=== PATIENT | male | born 1940 | race Caucasian/White ===

== ENCOUNTER → 2016-08-18 | Outpatient (CLI) | payer MEDICARE, OTHER | END | disposition home or self-care (01) | LOC: GMAL 19:17 | PROVIDERS: ATTEND Family Medicine | DX: R31.9 Hematuria, unspecified (principal); Z12.5 Encounter for screening for malignant neoplasm of prostate | CPT/HCPCS: 87086; G0103 ==

== ENCOUNTER → 2016-08-23 | Outpatient (CLI) | payer MEDICARE, OTHER ==
--- NOTE | 2016-08-23 15:54 | CT ---
EXAM DESCRIPTION: Abdomen/Pelvis w/wo Contrast CLINICAL HISTORY: HEMATURIA COMPARISON: None. TECHNIQUE: CT of the abdomen and pelvis was performed prior to and after the administration of contrast.. Multiple axial images and multiplanar reconstructions were generated. FINDINGS: Lung bases are clear. Severe multilevel degenerative change of the spine. Prior granulomatous disease. The spleen, bilateral adrenal glands, liver, gallbladder and pancreas are unremarkable. Bilateral kidneys enhance symmetrically. Two left renal cyst noted. No evidence of renal stone. Bilateral ureters are unremarkable. Urinary bladder demonstrates minimal distention which likely results in the prominence of the wall. The prostate is enlarged measuring 5 cm in the transverse dimension. No lymphadenopathy noted. Negative for aneurysm of abdominal aorta. Small bowel and colon are without acute findings. Diverticulosis is noted. Facet IMPRESSION: 1. Two left subcentimeter renal cyst noted. No evidence of renal mass or stone 2. Urinary bladder wall is thickened. Could be secondary to inflammatory change or nondistention. 3. The prostate is enlarged measuring 5 cm in the transverse dimension. 4. Diverticulosis of the colon noted. Electronically signed by: Ezra Zepeda MD 08/23/2016 3:54 PM ORDER ENTRY TECHNICIAN
== END | disposition home or self-care (01) ==
LOC: CT 09:20
PROVIDERS: ATTEND Family Medicine
DX: R31.9 Hematuria, unspecified (principal)

== ENCOUNTER → 2016-10-12 | Outpatient (CLI) | payer MEDICARE, OTHER | LOC: GMAL 16:45 | PROVIDERS: ATTEND Family Medicine | DX: R50.9 Fever, unspecified (principal) ==

== ENCOUNTER → 2016-11-17 | Outpatient (CLI) | payer MEDICARE, OTHER | END | disposition home or self-care (01) | LOC: GMAL 12:23 | PROVIDERS: ATTEND Family Medicine | DX: D53.9 Nutritional anemia, unspecified (principal) ==

== ENCOUNTER → 2016-12-06 | Outpatient (CLI) | payer MEDICARE, OTHER ==
--- NOTE | 2016-12-06 09:11 | RAD ---
EXAM DESCRIPTION: Wrist,Right 3 Views CLINICAL HISTORY: 76 years, Male, CARPAL TUNNEL SYNDROME COMPARISON: None. FINDINGS: No fracture or dislocation. Mild narrowing of the radiocarpal joint space. [place] fibrocartilage calcification compatible pseudogout. Advanced arthritic change first carpometacarpal joint with sclerosis and spurring and lateral subluxation. Moderate degenerative change interphalangeal joint of the thumb. IMPRESSION: No fracture or dislocation. Degenerative change and findings of pseudogout. Arthritic changes in the first digit right hand Electronically signed by: Marcelo Joy MD 12/06/2016 9:10 AM CDT
--- NOTE | 2016-12-06 09:12 | RAD ---
EXAM DESCRIPTION: Wrist,Left 3 Views CLINICAL HISTORY: 76 years, Male, CARPAL TUNNEL SYNDROME COMPARISON: None. FINDINGS: No fracture or dislocation. Moderate narrowing radiocarpal joint space. Central fibrocartilage calcification compatible pseudogout. Arthritic changes first carpometacarpal joint and is probably joint of the thumb. This is probably slightly less advanced than the right side. IMPRESSION: No fracture or dislocation. Arthritic changes. Findings of pseudogout. Electronically signed by: Marcelo Joy MD 12/06/2016 9:11 AM CDT
== END | disposition home or self-care (01) ==
LOC: RAD 08:24
PROVIDERS: ATTEND Orthopaedic Surgery
DX: G56.01 Carpal tunnel syndrome, right upper limb (principal); G56.02 Carpal tunnel syndrome, left upper limb

== ENCOUNTER → 2017-01-13 | Outpatient (CLI) | payer MEDICARE, OTHER ==
--- NOTE | 2017-01-16 17:30 | RAD ---
EXAM DESCRIPTION: Knee,Left Complete CLINICAL HISTORY: 76 years, Male, PAIN IN LEFT KNEE COMPARISON: None TECHNIQUE: Three views of the left knee FINDINGS: Severe lateral compartment arthritic changes with marked joint space narrowing and prominent marginal osteophytes. Significant though lesser patellofemoral and medial compartment changes are present. Related small effusion. No fracture or bone lesion. IMPRESSION: 1. Severe lateral compartment arthritis of the left knee Electronically signed by: Leopoldo Whittaker MD 01/16/2017 5:28 PM CDT
--- NOTE | 2017-01-16 17:57 | RAD ---
EXAM DESCRIPTION: Pelvis CLINICAL HISTORY: 76 years Male, PAIN IN RIGHT AND LEFT HIPS COMPARISON: None. FINDINGS: AP pelvis shows mild joint space narrowing both hips with early marginal osteophytes. No hip fracture or bone lesion. SI joints unremarkable. Severe degenerative changes lower lumbar spine. IMPRESSION: Early arthritis both hips Severe lumbar spondylosis Electronically signed by: Leopoldo Whittaker MD 01/16/2017 5:56 PM CDT
--- NOTE | 2017-01-16 17:57 | RAD ---
EXAM DESCRIPTION: Knee,Right Complete CLINICAL HISTORY: 76 years, Male, PAIN IN RIGHT KNEE COMPARISON: None TECHNIQUE: Three views of the right knee FINDINGS: Severe medial lateral compartment arthritis with marked joint space narrowing and productive marginal osteophyte formations. Lesser but still significant patellofemoral changes present. Small related joint effusion. No fracture or bone lesion. IMPRESSION: 1. Severe medial and lateral compartment osteoarthritis Electronically signed by: Leopoldo Whittaker MD 01/16/2017 5:55 PM CDT
== END | disposition home or self-care (01) ==
LOC: RAD 07:53
PROVIDERS: ATTEND Orthopaedic Surgery
DX: M25.561 Pain in right knee (principal); M25.562 Pain in left knee; M25.551 Pain in right hip; M25.552 Pain in left hip

== ENCOUNTER 2017-01-19 06:01 | Day surgery (SDC) | payer MEDICARE, OTHER ==
[2017-01-19] MEDS ORDERED: LACTATED RINGERS 1,000 ML ONE (06:11)
[2017-01-19] MEDS ORDERED: SODIUM CHL 0.9% 100ML MINI-BAG 100 ML IVPB ONE (06:11)
[2017-01-19] MEDS ORDERED: ceFAZolin SODIUM 1 GM VIAL ONE ×2 (06:12→09:02)
[2017-01-19] MEDS ORDERED: BUPIVACAINE 0.25% INJ 30 ML VIAL INJ ONE (09:01)
[2017-01-19] MEDS ORDERED: LIDOCAINE 1% 50 ML VIAL INJ ONE (09:01)
[2017-01-19] MEDS ORDERED: VANCOMYCIN HCL INJ 1,000 MG VIAL IVPB ONE (09:02)
[2017-01-19] MEDS ORDERED: MIDAZOLAM INJ 5 MG/5 ML VIAL ONE (09:29)
[2017-01-19] MEDS ORDERED: fentaNYL CITRATE INJ 50 MCG/ML AMP ONE (09:29)
[2017-01-19] MEDS ORDERED: LIDOCAINE 1% 10 ML VIAL INJ ONE (10:00)
[2017-01-19] MEDS ORDERED: PROPOFOL 200 MG/20 ML VIAL IV ONE (10:00)
[2017-01-19] MEDS ORDERED: raNITIdine HCL INJ 25 MG/ML VIAL IV ONE (10:00)
--- NOTE | 2017-01-19 10:18 | OP ---
DATE OF PROCEDURE: 01/19/17 PREOPERATIVE DIAGNOSIS: 1. Left carpal tunnel syndrome. POSTOPERATIVE DIAGNOSIS: 1. Left carpal tunnel syndrome. PROCEDURE: 1. Left carpal tunnel release. SURGEON: Kelton Nielson MD. MEDICAL RECORD RETRIEVAL SPECIALIST: Gunnar Roy CST, SA-C. ANESTHESIA: Local with sedation. COMPLICATIONS: None. FINDINGS: Narrowing of the median nerve across the carpal tunnel with thickened transverse ligament and thenar atrophy. INDICATION: The patient has a history of carpal tunnel syndrome that has been refractory to conservative measures. He has ongoing symptoms on a daily basis and has requested carpal tunnel release. After discussing the risks, benefits and alternatives to that, the patient has given informed consent for carpal tunnel release. PROCEDURE: The patient was brought to the Operating Room and placed in the supine position. Sedation was administered and local anesthetic was injected into the operative area under sterile conditions. After the injection of anesthetic, the arm was sterilely prepped and draped. A longitudinal incision was made directly overlying the transverse carpal ligament and blunt dissection was carried down to the ligament. The transverse carpal ligament was sharply transected along its length and a [place] elevator was used to ensure complete release of the ligament. Once release had been confirmed, the wound was thoroughly irrigated and the wound was closed with Nylon suture. A sterile dressing was placed and the patient was taken to the Day Surgery Unit. POSTOPERATIVE INSTRUCTIONS: The patient has been encouraged to do range of motion of the digits and will followup with us in two days. [facility][id number]ENT[facility]enetta
[2017-01-19 11:05] VITALS: TEMP 97
[2017-01-19 11:06] VITALS: BP 138/60; O2SAT 99
== END 2017-01-19 10:50 | disposition home or self-care (01) ==
LOC: AMB 06:01
PROVIDERS: ATTEND Orthopaedic Surgery
DX: G56.02 Carpal tunnel syndrome, left upper limb (principal); I10 Essential (primary) hypertension; I25.10 Atherosclerotic heart disease of native coronary artery without angina pectoris; K21.9 Gastro-esophageal reflux disease without esophagitis; J44.9 Chronic obstructive pulmonary disease, unspecified; Z95.1 Presence of aortocoronary bypass graft; I25.2 Old myocardial infarction; Z88.8 Allergy status to other drugs, medicaments and biological substances; Z79.82 Long term (current) use of aspirin; Z79.899 Other long term (current) drug therapy
CPT/HCPCS: 01810; 64721; 87070; J0690; J2250; J2780; J3010; J3370; J3490; J7050; J7120

== ENCOUNTER → 2017-03-10 | Outpatient (CLI) | payer MEDICARE, OTHER | END | disposition home or self-care (01) | LOC: GMA 14:45 | PROVIDERS: ATTEND Physician Assistant | DX: N39.0 Urinary tract infection, site not specified (principal); R30.0 Dysuria; R31.9 Hematuria, unspecified ==

== ENCOUNTER → 2017-05-24 | Outpatient (CLI) | payer MEDICARE, OTHER | END | disposition home or self-care (01) | LOC: GMAL 10:43 | PROVIDERS: ATTEND Family Medicine | DX: E55.9 Vitamin D deficiency, unspecified (principal) ==

== ENCOUNTER → 2017-05-31 | Outpatient (CLI) | payer MEDICARE, OTHER | END | disposition home or self-care (01) | LOC: GMAL 14:35 | PROVIDERS: ATTEND Family Medicine | DX: N39.0 Urinary tract infection, site not specified (principal); Z85.46 Personal history of malignant neoplasm of prostate; R31.21 Asymptomatic microscopic hematuria ==

== ENCOUNTER → 2017-08-18 | Outpatient (CLI) | payer MEDICARE, OTHER ==
--- NOTE | 2017-08-18 09:23 | RAD ---
LEFT SHOULDER HISTORY:SHOULDER PAIN COMPARISON: None FINDINGS: Four views of shoulder demonstrate anatomic bony alignment. No acute fracture nor dislocation is identified. Acromiohumeral interval is maintained. Glenohumeral and acromioclavicular articulations are unremarkably aligned. No soft tissue abnormality around the shoulder joint. No pneumothorax in visualized portion of left upper lung. IMPRESSION: No acute bony injury identified in left shoulder Electronically signed by: Isaiha rCuz MD 08/18/2017 9:22 AM DIRECTOR OF PHYSIOTHERAPY SERVICES
--- NOTE | 2017-08-18 09:24 | RAD ---
LEFT HAND HISTORY:HAND PAIN COMPARISON:None FINDINGS: Three views of hand demonstrate anatomic bony alignment. No fracture, dislocation nor inflammatory bony erosion is identified. IP, DIP and CMC joints are diffusely narrowed, with sparing of MCP joints. No soft tissue abnormality detected along the hand. IMPRESSION: No bony injury in left hand. Osteoarthritis Electronically signed by: Isaiah Cruz MD 08/18/2017 9:23 AM [facility]
== END ==
LOC: RAD 07:44
PROVIDERS: ATTEND Orthopaedic Surgery
DX: M79.642 Pain in left hand (principal); M19.042 Primary osteoarthritis, left hand; M25.512 Pain in left shoulder

== ENCOUNTER → 2017-10-19 | Outpatient (CLI) | payer MEDICARE, OTHER | LOC: GMAL 16:51 | PROVIDERS: ATTEND Family Medicine | DX: Z01.818 Encounter for other preprocedural examination (principal); D51.3 Other dietary vitamin B12 deficiency anemia; R30.0 Dysuria ==

== ENCOUNTER → 2017-10-20 | Outpatient (CLI) | payer MEDICARE, OTHER ==
--- NOTE | 2017-10-21 10:33 | MRI ---
EXAM DESCRIPTION: Lumbar Spine w/o Contrast MRI. CLINICAL HISTORY: DORSALGIA COMPARISON: Cervical MRI scan on the same visit. TECHNIQUE: Multiplanar, multiple standard sequences, non contrast MRI, lumbar spine. FINDINGS: L5-S1: Moderate disc space loss with large anterior spur formation along with disc bulge. Posterior disc osteophyte bulge abutting the thecal sac and the descending S1 nerve roots. Moderate to severe canal narrowing. Bilateral facet arthrosis and flavum hypertrophy. Bilateral disc osteophyte complex encroachment on the foramina which are stenotic. L4-5: Moderate to severe disc space loss with anterior bridging osteophytes more right than left, and disc bulge. Posterior bilateral facet arthrosis and flavum ligament hypertrophy. Moderate central canal stenosis. Diffuse endplate marrow edema. Posterior osteophyte disc encroachment on the subarticular recesses which are stenotic, and encroachment on the bilateral L5 nerves. Modic type III endplate reaction on the right and type II reaction on the left moderate narrowing right foramen and left foraminal stenosis. L3-4: Moderate to severe disc space loss more to the left of midline with Schmorl's nodes. Anterior and left lateral Modic type II endplate reactive changes. Minimal anterior disc bulge and spurs. No significant posterior bulge. Mild flavum ligament hypertrophy and facet arthrosis. Mild canal narrowing. Left foraminal stenosis and encroachment on the left L3 nerve. L2-3: Moderate to severe disc space loss more in the midline into the left of midline. Anterior disc bulging and endplate ridging. Mild canal narrowing with no significant disc bulge. Mild flavum ligament hypertrophy and left facet arthrosis. Left side Modic type II endplate reactive changes and moderate foraminal narrowing. L1-2: Disc desiccation with anterior disc bulge and large spurs. Schmorl's nodes superior L2 endplate. Trace retrolisthesis. Tiny posterior disc bulge. Minimal flavum ligament hypertrophy with mild canal narrowing. Mild bilateral foraminal narrowing with disc bulge also into the left foramen. T12-L1: Moderate to severe disc space loss. Minimal anterior bulging and endplate spurs to the right of midline. Schmorl's nodes inferior T12 endplate. Posterior disc osteophyte complex abutting the cord with conus medullaris terminating just below the disc space. Moderate canal narrowing. Minimal facet arthrosis and flavum ligament hypertrophy. Moderate bilateral foraminal narrowing. Minimal lower lumbar dextroscoliosis and thoracolumbar levoscoliosis. Paravertebral soft tissues show muscle atrophy.. Otherwise normal marrow signal in the remaining vertebral bodies and the posterior elements. Vertebral bodies are not compressed at any level. IMPRESSION: 1. Spondylosis at every level with anterior disc bulging and endplate ridging. Canal narrowing and foraminal narrowing or stenosis at almost every level. Minimal scoliosis. 2. Posterior disc osteophyte L5-S1 disc bulge abutting the descending S1 nerve roots in the canal. Also bilateral encroachment on the foramina. Correlate for L5 and S1 radiculopathy. 3. Large posterior disc osteophyte complex encroachment on the thecal sac. Bilateral subarticular recesses stenosis in the bilateral L5 nerves. Moderate central canal stenosis. Left foraminal stenosis. 4. Left side disc osteophyte complex at L3-4 resulting in left foraminal stenosis and encroachment on the left L3 nerve. 5. Large posterior disc osteophyte complex at T12-L1 abutting the cord. Conus terminates just below the disc space. Moderate to severe canal narrowing. Electronically signed by: Gunnar Perkins MD 10/21/2017 10:32 AM CDT
--- NOTE | 2017-10-21 10:48 | MRI ---
EXAM DESCRIPTION: Cervical Spine: MRI. CLINICAL HISTORY: LACK OF COORDINATION COMPARISON: MRI lumbar spine on the same visit. TECHNIQUE: Multiplanar MRI, multiple sequences, non-contrast High-field. FINDINGS: C4-5: Disc desiccation and moderate disc space loss. Anterior bulging with spurs. Grade 1 anterolisthesis. Posterior broad-based disc spur complex impressing on the cord. Posterior ligament hypertrophy. Bilateral facet arthrosis and uncinate spurs larger on the left than right. Cord compression with edema from the C3-4 disc space to the C4-5 disc space. 4 to 5 mm. Moderate canal stenosis. Bilateral moderate neural foraminal narrowing. C3-4: Disc desiccation and moderate disc space loss. Anterior bulging and endplate ridging. Posterior disc osteophyte bulge abutting the cord with moderate narrowing. Bilateral uncinate spurs and arthrosis of the right facet. Mild right neural foraminal stenosis and left neural foraminal moderate narrowing. C5-6: Minimal to moderate disc space loss and desiccation with anterior endplate spurs. Bilateral uncinate spurs. Mild bilateral neural foraminal narrowing. Mild bilateral facet arthrosis. Mild hypertrophy of the flavum ligaments and mild canal narrowing. C6-7: Disc desiccation and anterior bulging and endplate ridging. Moderate disc space loss. Posterior broad-based disc osteophyte bulge abutting the cord, more right than left. Borderline right paracentral canal stenosis. Moderate right neural foraminal stenosis and moderate left neural foraminal narrowing. C7-T1: Mild disc desiccation and minimal disc space loss. Grade 1 anterolisthesis. Bilateral facet arthrosis and flavum ligament hypertrophy. Mild canal narrowing. Bilateral moderate neural foraminal narrowing. T1-T2: Moderate disc space loss and desiccation with anterior bridging spurs. Grade 1 anterolisthesis. Schmorl's nodes in the inferior T1 endplate. Posterior broad-based disc bulge 4 mm abutting the cord. Mild canal narrowing. Moderate left neural foraminal narrowing with right neuroforamen patent. Normal signal in the C2-3 disc with no bulging. Disc spaces preserved. Canal and neural foramina are patent. Facets are unremarkable. No scoliosis. Spine is minimal lordosis with cervical thoracic kyphosis.. No cord compression or cord edema. Atlantoaxial joint is minimally hypertrophied.. Base of the cerebellar tonsils is above the level of the foramen magnum. Paravertebral soft tissues show muscle atrophy. Small nodule in the left lobe of thyroid gland.. Soft tissue edema posterior to the right C4-C5 facet joint. Vertebral bodies are not compressed at any level. Spondylosis indicated by marrow signal in the C4 and C5 vertebral bodies and the posterior elements. IMPRESSION: 1. Multiple levels of cervical spondylosis, disc degeneration and spur formation, facet arthrosis and ligament hypertrophy. 2. Cord compression at C4-5 with cord edema and moderate canal stenosis which is multifactorial. Cord diameter approximately 5 mm. This could be causing symptoms describing clinical history. Bilateral moderate neural foraminal narrowing. Correlate for bilateral C5 radiculopathy. 3. Moderate central canal narrowing at C3-4 with right neural foraminal stenosis. Correlate for right C4 radiculopathy. 4. Disc space narrowing and disc space loss at C5-6 with mild bilateral neural foraminal narrowing and mild canal narrowing. 5. Borderline right paracentral canal stenosis at C6-7 with large posterior disc osteophyte bulge more on the right. Moderate right neural foraminal stenosis. Correlate for right C7 radiculopathy. 6. Grade 1 anterolisthesis T1 and T2 with posterior broad-based disc bulge. Mild canal narrowing and moderate left neural foraminal narrowing. CRITICAL COMMUNICATION: The critical value was discussed directly by phone with Dr. Ronaldo Mustafa at approximately 1040 hours, on October 21, 2017. Electronically signed by: Gunnar Perkins MD 10/21/2017 10:46 AM CDT
== END ==
LOC: MRI 12:45
PROVIDERS: ATTEND Family Medicine
DX: M48.02 Spinal stenosis, cervical region (principal); M50.80 Other cervical disc disorders, unspecified cervical region; M43.14 Spondylolisthesis, thoracic region; M51.26 Other intervertebral disc displacement, lumbar region; R27.9 Unspecified lack of coordination

== ENCOUNTER → 2018-01-18 | Outpatient (CLI) | payer MEDICARE, OTHER | LOC: LAB.O 09:00 | PROVIDERS: ATTEND Family Medicine | DX: R79.1 Abnormal coagulation profile (principal); R94.5 Abnormal results of liver function studies; E56.1 Deficiency of vitamin K ==

== ENCOUNTER → 2018-04-19 | Outpatient (CLI) | payer MEDICARE, OTHER | LOC: GMAL 17:09 | PROVIDERS: ATTEND Family Medicine | DX: I50.9 Heart failure, unspecified (principal); R53.83 Other fatigue ==

== ENCOUNTER → 2018-07-17 | Outpatient (CLI) | payer MEDICARE, OTHER | LOC: GMAL 15:09 | PROVIDERS: ATTEND Family Medicine | DX: C61 Malignant neoplasm of prostate (principal) ==

== ENCOUNTER → 2018-08-11 | Outpatient (CLI) | payer MEDICARE, OTHER ==
--- NOTE | 2018-08-11 13:47 | RAD ---
EXAM DESCRIPTION: Pelvis CLINICAL HISTORY: 77 years Male, PAIN IN LEFT KNEE AND LEFT HIP COMPARISON: Radiograph of the pelvis dated 01/13/2017. TECHNIQUE: AP radiograph of the pelvis was performed. FINDINGS: The pelvic ring appears grossly intact on this single AP radiograph. No acute fracture or dislocation. Bilateral sacroiliac joints appear normal. Mild bilateral hip osteoarthritis The visualized lumbo-sacral spine demonstrates mild degenerative changes. IMPRESSION: Single AP radiograph of the pelvis demonstrates grossly intact pelvic ring. Mild bilateral hip osteoarthritis. Electronically signed by: Kelsie Brown MD 08/11/2018 1:44 PM [facility]
--- NOTE | 2018-08-11 13:47 | RAD ---
EXAM DESCRIPTION: Knee,Left 2 or More Views CLINICAL HISTORY: 77 years Male, PAIN IN LEFT KNEE AND LEFT HIP TECHNIQUE: 4 views of the left knee were performed. COMPARISON: None available. FINDINGS: The visualized bones appear well mineralized. No acute fracture or dislocation. Tricompartmental osteoarthritis, worse in the lateral tibiofemoral compartment. Small suprapatellar joint effusion. The soft tissues appear grossly unremarkable. IMPRESSION: Tricompartmental osteoarthritis, worse in the lateral tibiofemoral compartment. Small suprapatellar joint effusion. Electronically signed by: Kelsie Brown MD 08/11/2018 1:43 PM [facility]
== END ==
LOC: RAD 08:24
PROVIDERS: ATTEND Orthopaedic Surgery
DX: M17.12 Unilateral primary osteoarthritis, left knee (principal); M16.0 Bilateral primary osteoarthritis of hip; M25.561 Pain in right knee; M25.562 Pain in left knee; M25.551 Pain in right hip; M25.552 Pain in left hip

== ENCOUNTER → 2019-02-20 | Outpatient (CLI) | payer MEDICARE, OTHER | LOC: GMAL 14:37 | PROVIDERS: ATTEND Family Medicine | DX: D51.3 Other dietary vitamin B12 deficiency anemia (principal); E55.9 Vitamin D deficiency, unspecified; I10 Essential (primary) hypertension; Z79.899 Other long term (current) drug therapy ==

== ENCOUNTER → 2019-03-12 | Outpatient (CLI) | payer MEDICARE, OTHER ==
--- NOTE | 2019-03-12 18:25 | RAD ---
EXAM DESCRIPTION: Pelvis CLINICAL HISTORY: HIP PAIN COMPARISON: 11 August 2018 TECHNIQUE: AP pelvis FINDINGS: Degenerative changes are observed in the lower lumbar spine. Mild acetabular osteophyte formation is observed. No fracture is detected. No significant interval change is observed from the prior study. IMPRESSION: Degenerative changes are observed. There is been no interval change from the previous exam. Electronically signed by: Ronaldo Escobedo MD 03/12/2019 6:24 PM CDT
--- NOTE | 2019-03-12 18:27 | RAD ---
EXAM DESCRIPTION: Knee,Left Complete CLINICAL HISTORY: PAIN IN LEFT KNEE COMPARISON: 11 August 2018 TECHNIQUE: 4 views left FINDINGS: Marked loss of lateral joint space is observed. Lateral tibial osteophyte formation is noted. Chondrocalcinosis is observed in the medial joint compartment. Mild patellofemoral joint arthritis is observed. A small joint effusion is seen. IMPRESSION: Tricompartmental joint arthritis is observed most pronounced in the lateral joint compartment. No significant interval change is observed from the prior exam. Electronically signed by: Ronaldo Escobedo MD 03/12/2019 6:25 PM CDT
== END ==
LOC: RAD 09:55
PROVIDERS: ATTEND Orthopaedic Surgery
DX: M47.896 Other spondylosis, lumbar region (principal); M25.759 Osteophyte, unspecified hip; M17.12 Unilateral primary osteoarthritis, left knee

== ENCOUNTER 2019-04-20 12:15 | Emergency (ER) | payer MEDICARE, OTHER ==
[2019-04-20 12:32] VITALS: TEMP 96.9
[2019-04-20] MEDS ORDERED: ASPIRIN (CHEWABLE) 81 MG TAB PO ONE (12:49)
--- NOTE | 2019-04-20 12:56 | ED.PDOC ---
History of Present Illness - General Chief Complaint: Chest Pain/TN Stated Complaint: chest pain Time Seen by Provider: 04/20/19 12:28 - History of Present Illness Initial Comments: this is a 78-year-old gentleman who presents to the ED today with complaints of chest pain starting yesterday morning. He states that it is very mild in nature and has only been a 4/10 intensity at any time. He states that he was doing daily chores of feeding his horses whenever it began. He went inside and took nitroglycerin followed by a spray of his 's nitroglycerin and then 2 additional nitroglycerin with resolution of his pain. He states that it continued to present itself intermittently throughout the day but would last for less than 1 minute each time. He denies any shortness of breath nausea or diaphoresis with any of these episodes. He admits that taking a deep breath also initiates the pain. He states he felt it again this morning and wanted to come in and get it checked out. He has a history of a CABG in 1999 followed by 5 stents over the years, the last one being in 2014. He quit smoking approximately 10 years ago and prior to that was smoking about 2 packs per day tobacco. He states that he started in his teens. He is followed by Dr. Mustafa his PCP and by for cardiology. His surgery was performed in [facility]. Patient denies taking any aspirin today. He is not currently in any pain.he states he wanted to get checked out before hunting tomorrow morning. Allergies/Adverse Reactions: Allergies Hydromorphone [From Dilaudid] Allergy (Verified 01/13/17 11:05) Lorazepam Allergy (Verified 04/20/19 12:32) Meperidine [From Demerol HCl] Allergy (Verified 01/13/17 11:05) Home Medications: Ambulatory Orders Aspirin [Aspirin EC Low Dose] 81 mg PO DAILY 01/14/17 Lisinopril 5 mg PO DAILY 01/14/17 Omeprazole 20 mg PO DAILY 01/14/17 Simvastatin [Zocor] 40 mg PO DAILY 01/14/17 Multiple Vitamins W/ Minerals [Mens 50+ Multi Vitamin &] 1 tab PO DAILY 04/20/19 Nitroglycerin 0.4 mg Tab [Nitrostat] 1 ea SL PRN 04/20/19 Tamsulosin [Flomax] 0.4 mg PO QD 04/20/19 Review of Systems - Review of Systems Constitutional: States: no symptoms reported EENTM: States: no symptoms reported Respiratory: States: no symptoms reported. Denies: cough, orthopnea, short of breath, wheezing Cardiology: States: chest pain. Denies: edema, palpitations, syncope Gastrointestinal/Abdominal: States: no symptoms reported Genitourinary: States: no symptoms reported Musculoskeletal: States: no symptoms reported Skin: States: no symptoms reported Neurological: States: no symptoms reported. Denies: anxiety Endocrine: States: no symptoms reported Hematologic/Lymphatic: States: no symptoms reported All other Systems: Reviewed and Negative Past Medical History (General) - Patient Medical History Hx Stroke: No Hx Cardiac Disorders: Yes - Hypercholesterolemia Hx Congestive Heart Failure: No Hx Diabetes: No Hx Gastroesophageal Reflux: Yes Hx MRSA: No Surgical History: coronary bypass surgery - Vaccination History Hx Influenza Vaccination: Yes Hx Pneumococcal Vaccination: No - Social History Hx Tobacco Use: Yes Hx Physical Abuse: No Hx Emotional Abuse: No Family Medical History - Family History Father Family History: Unknown Living Status: Hx Cardiac Disease: Yes - parents Physical Exam - Physical Exam General Appearance: Alert, Comfortable, No apparent distress Eyes, Ears, Nose, Throat Exam: PERRL/EOMI Neck: non-tender, supple, normal inspection Respiratory: chest non-tender, no respiratory distress, no accessory muscle use, rhonchi - occasional and scatterred Cardiovascular/Chest: normal peripheral pulses, regular rate, rhythm, no edema, no gallop, no JVD, no murmur Peripheral Pulses: radial,right: 2+, radial,left: 2+ Gastrointestinal/Abdominal: normal bowel sounds, non tender, soft, no organomegaly, no pulsatile mass Extremity: normal range of motion Neurologic: sports media II-XII nml as tested, alert, normal mood/affect, oriented x 3 Skin Exam: normal color, warm/dry Lymphatic: no adenopathy Progress - Progress Progress: 04/20/19 12:59 MDM Pt with hx of cad and cabg with subsequent stenting. He will need cardiac enzymes x 2 and cxr. We will give asa. His bp and pulse are in good range presently. His initial ecg shows no signs of ischemia. 04/20/19 14:28 Pt is comfortable and has not experienced any chest pains. Troponin negative. 04/20/19 15:33 Pt is still feeling well. No signs of chest pain. Second troponin is pending. If negative will dc home with follow up. - Results/Orders Results/Orders: IMPRESSION: Heart size and pulmonary vascularity are within normal limits. Sternotomy wires with changes of prior cardiac surgery. Focal elevation of the right hemidiaphragm. There is no airspace consolidation, pleural effusion, or pneumothorax. No acute osseous abnormality. Electronically signed by: Mendoza Landeros MD 04/20/2019 1:17 PM CDT 04/20/19 12:48 IV:Start .ONCE 04/20/19 13:30 EKG STAT 04/20/19 14:45 ecg [EKG] STAT Laboratory Results - last 24 hr 04/20/19 04/20/19 04/20/19 13:03 13:03 13:03 WBC 5.6 RBC 4.36 L Hgb 14.0 Hct 41.8 L MCV 95.8 H MCH 32.2 H MCHC 33.6 RDW 13.4 Plt Count 221 MPV 8.1 Absolute Neuts (auto) 4.00 Absolute Lymphs (auto) 1.00 Absolute Monos (auto) 0.50 Absolute Eos (auto) 0.10 Absolute Basos (auto) 0.00 Neutrophils % 71.1 Lymphocytes % 17.2 L Monocytes % 8.7 Eosinophils % 2.6 Basophils % 0.4 Sodium 142 Potassium 4.2 Chloride 105 Carbon Dioxide 27 Anion Gap 14.2 BUN 13 Creatinine 0.92 BUN/Creatinine Ratio 14.1 Random Glucose 94 Serum Osmolality 283.0 Calcium 9.7 Total Bilirubin 0.6 AST 17 ALT 13 Alkaline Phosphatase 70 Troponin I < 0.02 Serum Total Protein 7.3 Albumin 4.1 Globulin 3.2 Albumin/Globulin Ratio 1.3 04/20/19 14:50 WBC RBC Hgb Hct MCV MCH MCHC RDW Plt Count MPV Absolute Neuts (auto) Absolute Lymphs (auto) Absolute Monos (auto) Absolute Eos (auto) Absolute Basos (auto) Neutrophils % Lymphocytes % Monocytes % Eosinophils % Basophils % Sodium Potassium Chloride Carbon Dioxide Anion Gap BUN Creatinine BUN/Creatinine Ratio Random Glucose Serum Osmolality Calcium Total Bilirubin AST ALT Alkaline Phosphatase Troponin I < 0.02 Serum Total Protein Albumin Globulin Albumin/Globulin Ratio - EKG/XRAY/CT EKG: Sinus, RBBB, no ST T wave changes Comments: No ischemic changes appreciated, rbbb, first degree av block, - Additional EKG/XRAY/Consults EKG #2: David, Sinus, RBBB Comments: long pr interval, first degree av block, unchanged, Departure - Departure Clinical Impression: Chest pain Qualifiers: Chest pain type: chest pain on breathing Qualified Code(s): R07.1 - Chest pain on breathing; R07.81 - Pleurodynia Time of Disposition: 15:59 Disposition: Discharge to Home or Self Care Condition: Good Departure Forms: ED Discharge - Pt. Copy, Patient Portal Self Enrollment Instructions: DI for Chest Pain Referrals: Ronaldo Mustafa III, MD [Primary Care Provider] - 1-2 Weeks Home Medications: Ambulatory Orders Aspirin [Aspirin EC Low Dose] 81 mg PO DAILY 01/14/17 Lisinopril 5 mg PO DAILY 01/14/17 Omeprazole 20 mg PO DAILY 01/14/17 Simvastatin [Zocor] 40 mg PO DAILY 01/14/17 Multiple Vitamins W/ Minerals [Mens 50+ Multi Vitamin &] 1 tab PO DAILY 04/20/19 Nitroglycerin 0.4 mg Tab [Nitrostat] 1 ea SL PRN 04/20/19 Tamsulosin [Flomax] 0.4 mg PO QD 04/20/19
--- NOTE | 2019-04-20 13:19 | RAD ---
EXAM DESCRIPTION: Chest,1 View CLINICAL HISTORY: 78 years Male, chest pain COMPARISON: 02/03/2018 IMPRESSION: Heart size and pulmonary vascularity are within normal limits. Sternotomy wires with changes of prior cardiac surgery. Focal elevation of the right hemidiaphragm. There is no airspace consolidation, pleural effusion, or pneumothorax. No acute osseous abnormality. Electronically signed by: Mendoza Landeros MD 04/20/2019 1:17 PM CDT
[2019-04-20 16:13] VITALS: BP 131/81; O2SAT 99
== END 2019-04-20 16:13 | disposition home or self-care (01) ==
LOC: ER 12:15
DX: R07.1 Chest pain on breathing (principal); R07.81 Pleurodynia; R00.1 Bradycardia, unspecified; I45.10 Unspecified right bundle-branch block; I44.0 Atrioventricular block, first degree; I25.10 Atherosclerotic heart disease of native coronary artery without angina pectoris; E78.00 Pure hypercholesterolemia, unspecified; K21.9 Gastro-esophageal reflux disease without esophagitis; Z95.1 Presence of aortocoronary bypass graft; Z87.891 Personal history of nicotine dependence; Z79.899 Other long term (current) drug therapy; Z79.82 Long term (current) use of aspirin; Z88.5 Allergy status to narcotic agent; Z88.8 Allergy status to other drugs, medicaments and biological substances

== ENCOUNTER → 2019-06-11 | Outpatient (CLI) | payer MEDICARE, OTHER | LOC: LAB.O 08:14 | PROVIDERS: ATTEND Orthopaedic Surgery | DX: Z01.818 Encounter for other preprocedural examination (principal) ==

== ENCOUNTER 2019-06-26 05:39 | Inpatient (IN) | payer MEDICARE, OTHER ==
[2019-06-26] MEDS ORDERED: SODIUM CHL 0.9% 100ML MINI-BAG 100 ML IVPB ONE (05:46)
[2019-06-26] MEDS ORDERED: TRANEXAMIC ACID 1,000 MG/10 ML VIAL ONE ×2 (05:46→05:48)
[2019-06-26] MEDS ORDERED: VANCOMYCIN HCL INJ 1,000 MG VIAL IVPB ONE ×3 (05:46→17:27)
[2019-06-26] MEDS ORDERED: SODIUM CHLORIDE 0.9% 250ML 250 ML ONE ×2 (05:47→17:27)
[2019-06-26] MEDS ORDERED: ceFAZolin SODIUM 1 GM VIAL ONE ×3 (05:47→19:37)
[2019-06-26] MEDS ORDERED: SODIUM CHLORIDE 0.9% 100ML 100 ML IVPB ONE ×3 (05:47→19:37)
[2019-06-26] MEDS ORDERED: LACTATED RINGERS 1,000 ML ONE (05:48)
[2019-06-26] MEDS ORDERED: ACETAMINOPHEN IV 1000MG 100 ML ONE (06:24)
[2019-06-26] MEDS ORDERED: MIDAZOLAM INJ 5 MG/5 ML VIAL ONE (06:25)
[2019-06-26] MEDS ORDERED: MORPHINE SULFATE *EPIDURAL* 0.5 MG/ML VIAL ONE (06:25)
[2019-06-26] MEDS ORDERED: TRANEXAMIC ACID 1,000 MG/10 ML VIAL IV ONE (06:37)
[2019-06-26] MEDS ORDERED: LACTATED RINGERS 1,000 ML IVS ONE ×2 (06:37→10:33)
[2019-06-26] MEDS ORDERED: LACTATED RINGERS 1,000 ML BAG IV ONE (06:37)
[2019-06-26] MEDS ORDERED: MAGNESIUM HYDROXIDE 30 ML UD PO PRN (07:49)
[2019-06-26] MEDS ORDERED: MORPHINE SULFATE INJ 10 MG/ML VIAL IM PRN (07:49)
[2019-06-26] MEDS ORDERED: ZOLPIDEM TARTRATE 5 MG TAB PO PRN (07:49)
[2019-06-26] MEDS ORDERED: NALOXONE HCL INJ 0.4 MG/ML VIAL IV PRN (07:49)
[2019-06-26] MEDS ORDERED: TEMAZEPAM 15 MG CAP PO PRN (07:49)
[2019-06-26] MEDS ORDERED: SODIUM CHLORIDE 0.9% (FLUSH) 10 ML SYG IV PRN (07:49)
[2019-06-26] MEDS ORDERED: traMADol HCL 50 MG TAB PO PRN (07:49)
[2019-06-26] MEDS ORDERED: DEX 5% W/NACL 0.45% 1000ML 1,000 ML IVS PRN (07:49)
[2019-06-26] MEDS ORDERED: BISACODYL SUPPOSITORY 10 MG PR PRN (07:49)
[2019-06-26] MEDS ORDERED: HYDROcodone 10MG/APAP 325MG 1 EA TAB PO PRN (07:49)
[2019-06-26] MEDS ORDERED: HYDROcodone 5MG/APAP 325MG 1 EA TAB PO PRN (07:49)
[2019-06-26] MEDS ORDERED: MORPHINE SULFATE INJ 10 MG/ML VIAL IV PRN (07:49)
[2019-06-26] MEDS ORDERED: PROMETHAZINE HCL INJ 25 MG in SODIUM CHLORIDE 0.9% 50ML 50 ML IVPB PRN (07:49)
[2019-06-26] MEDS ORDERED: ALUMINUM & MAGNESIUM HYDROXIDE 30 ML UD PO PRN (07:49)
[2019-06-26] MEDS ORDERED: PROMETHAZINE HCL INJ 12.5 MG in SODIUM CHLORIDE 0.9% 50ML 50 ML IVPB PRN (07:49)
[2019-06-26] MEDS ORDERED: BENZOCAINE-MENTH LOZ (CEPACOL) 1 EA LOZ MT PRN (07:49)
[2019-06-26] MEDS ORDERED: ONDANSETRON INJ 4 MG/2 ML VIAL IV PRN (07:49)
[2019-06-26] MEDS ORDERED: TRANEXAMIC ACID INJ 1,000 MG in SODIUM CHLORIDE 0.9% 100ML 100 ML IVPB ONE (07:49)
[2019-06-26] MEDS ORDERED: ACETAMINOPHEN 500 MG TAB PO PRN (07:49)
[2019-06-26] MEDS ORDERED: MORPHINE PCA 1 MG/ML 100 ML BAG IVPB SCH (08:00)
[2019-06-26] MEDS: BUPIVACAINE 0.5% 30 ML VIAL INJ ONE ×2 (08:36→09:26)
[2019-06-26] MEDS: ceFAZolin SODIUM 1 GM VIAL ONE ×3 (08:36→09:35)
[2019-06-26] MEDS: BUPIVACAINE LIPOSOME 13.3 MG/ML VIAL INJ ONE ×2 (08:37→09:26)
[2019-06-26] MEDS: VANCOMYCIN HCL INJ 1,000 MG VIAL IVPB ONE ×2 (08:37→09:35)
[2019-06-26] MEDS ORDERED: SODIUM CHLORIDE 0.9% 50 ML VIAL INJ ONE (10:00)
[2019-06-26] MEDS ORDERED: PROPOFOL 200 MG/20 ML VIAL IV ONE (10:00)
[2019-06-26] MEDS ORDERED: LIDOCAINE 1% 10 ML VIAL INJ ONE (10:00)
[2019-06-26] MEDS ORDERED: DEXAMETHASONE INJ 10 MG/ML VIAL IV ONE (10:00)
[2019-06-26] MEDS ORDERED: EPINEPHrine HCL AMP 1 MG/ML AMP IVPB ONE (10:00)
[2019-06-26] MEDS ORDERED: raNITIdine HCL INJ 25 MG/ML VIAL IV ONE (10:00)
[2019-06-26] MEDS ORDERED: MAGNESIUM SULFATE INJ 1 GM/2 ML VIAL IVPB ONE (10:00)
[2019-06-26] MEDS ORDERED: diphenhydrAMINE HCL 50 MG/ML VIAL IV ONE (10:00)
--- NOTE | 2019-06-26 10:07 | RAD ---
EXAM DESCRIPTION: Fluoroscopy Up to 1Hr CLINICAL HISTORY: 78 years Male, LEFT TKA COMPARISON: None. TECHNIQUE: Operative C-arm was used for left total knee replacement with a fluoroscopic time of 0.8 seconds and a dose of 0.05 mGy. A single image is submitted for evaluation. FINDINGS: Total knee prosthesis has been placed with femoral and tibial components evident on the single fluoroscopic image obtained alignment in the AP projection appears anatomic. IMPRESSION: Left total knee replacement with metallic femoral and tibial components placed. Electronically signed by: Sunday Cuello MD 06/26/2019 10:05 AM [facility]
[2019-06-26] MEDS ORDERED: MORPHINE PCA 1 MG/ML 100 ML BAG IVPB ONE (11:00)
[2019-06-26] MEDS: IV SET AND CAP CHANGE INJ INJ SCH (12:26)
[2019-06-26] MEDS: MAGNESIUM OXIDE 400 MG TAB PO SCH (12:27)
--- NOTE | 2019-06-26 14:41 | CONS ---
SUPERVISING PHYSICIAN: Sunday Mcmullen MD DATE OF CONSULTATION: 06/26/19 REASON FOR CONSULTATION: Medical management. HISTORY OF PRESENT ILLNESS: This is a 78-year-old male patient with a history of left knee osteoarthritis that failed conservative measures. The patient underwent elective left total knee arthroplasty today without any intraoperative complications. He returned to the Medical/Surgical Unit in no distress. At the time of examination, the patient is alert, but a little bit drowsy. He follows commands. No focal deficits noted. PAST MEDICAL HISTORY: 1. Coronary artery disease. 2. Hypertension. 3. Erectile dysfunction. 4. Prostate cancer. 5. Upper GI bleed secondary to a gastric ulcer. 6. Cervical spine stenosis. PAST SURGICAL HISTORY: 1. Bilateral inguinal hernia repair. 2. Coronary artery bypass graft times 5. 3. Left shoulder surgery. 4. Cervical corpectomy. 5. EGD in the past. 6. Stress tests, most recently in 2018. 7. Echocardiogram in 2018 shows ejection fraction 65% with a grade 1 diastolic dysfunction. MEDICATIONS: 1. Aspirin 81 mg p.o. daily. 2. Lisinopril 5 mg p.o. daily. 3. Multivitamin 1 tab p.o. daily. 4. Nitrostat sublingual p.r.n. for chest pain. 5. Omeprazole 20 mg p.o. daily. 6. Simvastatin 40 mg daily. 7. Flomax 0.4 mg p.o. daily. ALLERGIES: DEMEROL, DILAUDID, ATIVAN, MELOXICAM. FAMILY HISTORY: He does not know the medical history of his father. Mother at age 58 from a myocardial infarction. A brother has had a stroke. A sister had a stroke. 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 He is . He has one child. He has a distant history of smoking, but quit in 2006, but smoked 2 packs per day for multiple years. He drinks alcohol on occasion. No illicit drugs. REVIEW OF SYSTEMS: CONSTITUTIONAL: No fever or chills. No recent weight loss or weight gain. HEENT: No headaches, vision changes, ear pain, nasal congestion or throat pain. RESPIRATORY: No cough, hemoptysis or pleuritic chest pain. CARDIOVASCULAR: No chest pain, palpitations or peripheral edema. GASTROINTESTINAL: No nausea, vomiting, diarrhea, constipation or abdominal pain. GENITOURINARY: No dysuria, frequency or flank pain. HEMATOLOGIC: No easy bruising and no transfusion reaction. MUSCULOSKELETAL: Left knee pain chronically, but not at this time postoperatively. ENDOCRINE: No polydipsia, polyuria or polyphagia. No heat or cold intolerance. SKIN: No rashes, lesions or wounds. NEUROLOGIC: No syncope, paresthesias or seizures. PHYSICAL EXAMINATION: VITAL SIGNS: Blood pressure 129/76. Heart rate 68. Respiratory rate 14. Temperature 98.2. Oxygen saturation 100%. GENERAL: Mr. Stvoer is a 78-year-old male patient in no active distress. NEUROLOGIC: The patient is alert and oriented, a little bit drowsy from anesthesia, but follows commands. No focal deficits. LUNGS: Clear to auscultation bilaterally. CARDIOVASCULAR: Regular rate and rhythm. Normal S1, S2. ABDOMEN: Soft. Positive bowel sounds. GENITOURINARY: Deferred. EXTREMITIES: Lower extremities show an Evan wrap to the left knee and the knee is in an ice machine at this time. ASSESSMENT: 1. Left knee osteoarthritis status post left total knee arthroplasty, postoperative day 0. 2. History of hypertension. 3. Hospital course of coronary artery disease. 4. History of prostate cancer. PLAN: At this time, the patient will be admitted to the Medical/Surgical Unit for pain control as well as physical therapy postoperatively. He will be placed on anticoagulation approximately 12 hours after surgery ended. I will restart his home medications as well. We will monitor for any medical complications that may arise. [facility][id number] [facility]
[2019-06-26] MEDS: ceFAZolin SODIUM 2 GM in SODIUM CHLORIDE 0.9% 100ML 100 ML IVPB SCH ×2 (16:02→23:57)
--- NOTE | 2019-06-26 16:16 | RAD ---
EXAM DESCRIPTION: Knee,Left 1 or 2 Views: CR/DR/XR. CLINICAL HISTORY: TKA COMPARISON: Pre-operative left knee radiographs February 2019. TECHNIQUE/FINDINGS: 2 views AP and crosstable lateral post surgery.. IMPRESSION: Left total knee arthroplasty in customary position with near-anatomic alignment. No appearance of bone around the components is unremarkable. Typical postsurgical soft tissue changes. No abnormal radiodense objects in the soft tissues or joint spaces. Electronically signed by: Gunnar Perkins MD 06/26/2019 4:14 PM [facility]
[2019-06-26] MEDS: VANCOMYCIN HCL INJ 1,000 MG in SODIUM CHLORIDE 0.9% 250ML 250 ML IVPB SCH (17:32)
[2019-06-26] MEDS: CELECOXIB 100 MG CAP PO SCH (17:32)
[2019-06-26] MEDS ORDERED: ENOXAPARIN SODIUM 30 MG/0.3 ML SYG SUBCU ONE (19:37)
[2019-06-26] MEDS: DOCUSATE CALCIUM 240 MG CAP PO SCH (19:52)
[2019-06-26] MEDS: SIMVASTATIN 20 MG TAB PO SCH (19:52)
[2019-06-26] MEDS: ENOXAPARIN SODIUM 30 MG/0.3 ML SYG SUBCU SCH (23:51)
[2019-06-27] MEDS ORDERED: VANCOMYCIN HCL INJ 1,000 MG VIAL IVPB ONE (05:19)
[2019-06-27] MEDS ORDERED: SODIUM CHLORIDE 0.9% 250ML 250 ML ONE (05:19)
[2019-06-27] MEDS: OMEPRAZOLE CAP 20 MG CAP PO SCH (05:56)
[2019-06-27] MEDS: VANCOMYCIN HCL INJ 1,000 MG in SODIUM CHLORIDE 0.9% 250ML 250 ML IVPB SCH (05:56)
[2019-06-27] MEDS ORDERED: CYCLOBENZAPRINE HCL 5 MG TAB ONE (08:11)
[2019-06-27] MEDS: TAMSULOSIN 0.4 MG CAP PO SCH (08:22)
[2019-06-27] MEDS: CELECOXIB 100 MG CAP PO SCH ×2 (08:22→18:16)
[2019-06-27] MEDS: MAGNESIUM OXIDE 400 MG TAB PO SCH (08:22)
[2019-06-27] MEDS: LISINOPRIL 5 MG TAB PO SCH (08:23)
[2019-06-27] MEDS: MULTIPLE VITAMINS W/ MINERALS 1 EA TAB PO SCH (08:23)
[2019-06-27] MEDS ORDERED: SODIUM CHLORIDE 0.9% 100ML 100 ML IVPB ONE (08:23)
[2019-06-27] MEDS: CYCLOBENZAPRINE HCL 10 MG TAB PO PRN (08:23)
[2019-06-27] MEDS ORDERED: ceFAZolin SODIUM 1 GM VIAL ONE (08:24)
[2019-06-27] MEDS: ceFAZolin SODIUM 2 GM in SODIUM CHLORIDE 0.9% 100ML 100 ML IVPB SCH (08:25)
[2019-06-27] MEDS: ENOXAPARIN SODIUM 30 MG/0.3 ML SYG SUBCU SCH ×2 (11:52→22:31)
--- NOTE | 2019-06-27 13:06 | PN ---
SUPERVISING PHYSICIAN: Sunday Mcmullen MD DATE: 06/27/19 SUBJECTIVE: The patient is lying in bed. He is asleep. He awakens easily. He has no complaints and actually felt like his physical therapy went well. The nurse reported that the daughter was quite concerned about him being discharged home and has requested that [facility] see the patient for evaluation, which we have called them. The patient denies chest pain, nausea, vomiting, diarrhea, constipation. OBJECTIVE: VITAL SIGNS: Temperature 98.5. Heart rate 67. Blood pressure 114/78. Respiratory rate 16. O2 saturation 97% on room air. RESPIRATORY: Essentially clear to auscultation bilaterally. CARDIAC: Regular rate and rhythm. GASTROINTESTINAL: Abdomen is soft, nondistended, nontender. Bowel sounds are positive. EXTREMITIES: The dressing to his left knee is dry and intact. Bilateral pedal pulses are palpable at +2. NEUROLOGIC: Awake, alert and oriented times three. LABORATORY: Hemoglobin 12.5, hematocrit 37. All other labs and films have been reviewed via the EMR. ASSESSMENT: 1. Left knee osteoarthritis status post left total knee arthroplasty, postoperative day 1. 2. History of hypertension. 3. History of coronary artery disease. 4. History of prostate cancer. PLAN: We will continue present supportive care. He will continue with physical therapy for strengthening and conditioning. Orthopedic issues will be per Dr. Kelton Nielson, orthopedic surgeon. [facility] will come to evaluate the patient for possible discharge there. OTILIO Ledezma, has been in contact with the family. I will try to speak with the family at some point today or tomorrow. I have encouraged the patient to take his pain medications to assist with his physical therapy. I have encouraged good pulmonary hygiene. Otherwise, we will continue to monitor the patient closely and follow as needed. [facility][id number] [facility]
[2019-06-27] MEDS ORDERED: SODIUM CHLORIDE 0.9% 500ML 500 ML IVS ONE (15:43)
[2019-06-27] MEDS: SIMVASTATIN 20 MG TAB PO SCH (20:00)
[2019-06-27] MEDS: DOCUSATE CALCIUM 240 MG CAP PO SCH (20:00)
[2019-06-27] MEDS: ACETAMINOPHEN 325 MG TAB PO PRN (20:30)
[2019-06-28] MEDS: OMEPRAZOLE CAP 20 MG CAP PO SCH (06:05)
--- NOTE | 2019-06-28 08:03 | PN ---
DATE: 06/27/19 SUBJECTIVE: Mr. Stover is doing pretty well. He is up to a chair right now. The knee is bent at 90 degrees. OBJECTIVE: Afebrile. Vital signs stable. Dressing is clean, dry and intact. ASSESSMENT: Status post total knee arthroplasty. PLAN: The plan at this point is for him to continue weightbearing as tolerated. We will increase CPM as tolerated. #[id number] [facility]
--- NOTE | 2019-06-28 08:04 | PN ---
DATE: 06/28/19 SUBJECTIVE: Mr. Stover is improved with regards to his pain from yesterday. OBJECTIVE: Afebrile. Vital signs stable. Wound is clean. There are no signs or symptoms of infection. ASSESSMENT: Status post total knee arthroplasty. PLAN: The plan at this point is to continue with weightbearing as tolerated. [facility][id number] [facility]
--- NOTE | 2019-06-28 08:07 | OP ---
DATE OF PROCEDURE: 06/27/19 PREOPERATIVE DIAGNOSIS: 1. Osteoarthritis of the left knee. POSTOPERATIVE DIAGNOSIS: 1. Osteoarthritis of the left knee. PROCEDURE: 1. Total knee arthroplasty. SURGEON: Kelton Nielson MD. STEVEDORING SUPERINTENDENT: Gunnar Roy CST, SA-C. ANESTHESIA: General anesthesia. COMPLICATIONS: None. FINDINGS: Severe osteoarthritis of the knee. INDICATION: Mr. Stover has a long history of pain in the knee that has been refractory to conservative measures. Because of his ongoing pain, he has requested operative intervention. After discussing the risks, benefits and alternatives to that, the patient has given informed consent for total knee arthroplasty. PROCEDURE: The patient was brought to the Operating Room and placed in supine position. General anesthesia was induced and the patient's leg was sterilely prepped and draped. Following prepping and draping, the distal femur was exposed and using an intramedullary guide, the distal femoral cut was made. The appropriate sized cutting block was measured, pinned into place, and the anterior, posterior, and chamfer cuts were made. The ACL was transected and the tibia was subluxed. Both the medial and lateral menisci were removed. An intramedullary guide was used to make the proximal tibial cut. The appropriate sized base plate was placed and a trial polyethylene was placed. The trial femur was placed, the knee was reduced, and the knee was taken through a range of motion. The knee was stable in anterior, posterior, varus and valgus stress. The patella tracked anatomically without evidence of subluxation or dislocation. After trialing, the trial components were removed and the bony surfaces were thoroughly irrigated with saline. Following irrigation, the surfaces were dried and the final components were cemented into place. The excess cement was removed and the remaining cement was allowed to cure. The knee was again taken through a range of motion to confirm stability. The wound was then irrigated with saline and closure was performed using PDS to approximate the arthrotomy followed by closure of the subcutaneous tissues with a combination of running and interrupted Monocryl sutures. Sterile dressing was placed. The patient was awoken from anesthesia and taken to Recovery. COMPONENTS: Vandana Triathlon knee, size 7 femur, size 6 tibia, 9 mm insert. POSTOPERATIVE PLAN: The patient will be weight-bearing as tolerated on postoperative day 1. #[id number] [facility]
[2019-06-28] MEDS ORDERED: SODIUM CHLORIDE 0.9% 250ML 250 ML ONE (08:08)
[2019-06-28] MEDS ORDERED: CYCLOBENZAPRINE HCL 5 MG TAB ONE (08:08)
[2019-06-28] MEDS ORDERED: VANCOMYCIN HCL INJ 1,000 MG VIAL IVPB ONE (08:09)
[2019-06-28] MEDS ORDERED: SODIUM CHLORIDE 0.9% 100ML 100 ML IVPB ONE ×3 (08:09→19:35)
[2019-06-28] MEDS ORDERED: ceFAZolin SODIUM 1 GM VIAL ONE ×3 (08:09→19:36)
[2019-06-28] MEDS ORDERED: VANCOMYCIN HCL INJ 1,000 MG in SODIUM CHLORIDE 0.9% 250ML 250 ML IVPB SCH (09:00)
[2019-06-28] MEDS: CELECOXIB 100 MG CAP PO SCH ×2 (10:13→17:42)
[2019-06-28] MEDS: LISINOPRIL 5 MG TAB PO SCH (10:13)
[2019-06-28] MEDS: MAGNESIUM OXIDE 400 MG TAB PO SCH (10:13)
[2019-06-28] MEDS: MULTIPLE VITAMINS W/ MINERALS 1 EA TAB PO SCH (10:13)
[2019-06-28] MEDS: TAMSULOSIN 0.4 MG CAP PO SCH (10:13)
[2019-06-28] MEDS: ACETAMINOPHEN 325 MG TAB PO PRN (10:13)
[2019-06-28] MEDS: SODIUM CHLORIDE 0.9% (FLUSH) 10 ML SYG IV SCH ×2 (10:14→20:22)
[2019-06-28] MEDS: CYCLOBENZAPRINE HCL 10 MG TAB PO PRN (10:14)
[2019-06-28] MEDS: ceFAZolin SODIUM 2 GM in SODIUM CHLORIDE 0.9% 100ML 100 ML IVPB SCH ×3 (10:14→23:26)
[2019-06-28] MEDS ORDERED: VANCOMYCIN HCL INJ 500 MG VIAL ONE (11:45)
[2019-06-28] MEDS: VANCOMYCIN HCL INJ 1,000 MG, VANCOMYCIN HCL INJ 500 MG in SODIUM CHLORIDE 0.9% 250ML 25... IVPB SCH (11:53)
[2019-06-28] MEDS: ENOXAPARIN SODIUM 30 MG/0.3 ML SYG SUBCU SCH ×2 (12:06→23:03)
--- NOTE | 2019-06-28 20:10 | PN ---
DATE: 06/28/19 SUPERVISING PHYSICIAN: Sunday Mcmullen M.D. SUBJECTIVE: The patient is sitting up in bed. He has had his physical therapy for this morning. He has no complaints of chest pain, shortness of breath, nausea or vomiting. It was reported yesterday that he was quite confused after taking his medication and had difficulty doing his afternoon physical therapy. His daughter [facility] According to the nurses, he has been accepted and we are awaiting beds for transfer. OBJECTIVE: VITAL SIGNS: Temperature 98.6, heart rate 80, blood pressure 101/62, respiratory rate 16, O2 saturation 96% on room air. RESPIRATORY: Essentially clear to auscultation bilaterally. CARDIAC: Regular rate and rhythm. GASTROINTESTINAL: Abdomen is soft, nondistended, non-tender. Bowel sounds are positive. EXTREMITIES: Left knee has a dressing that is dry and intact. Bilateral pedal pulses are palpable at +2. NEUROLOGIC: He is awake and alert. LABORATORY: There are no labs or films to report at this time. ASSESSMENT: 1. Left knee osteoarthritis status post left total knee arthroplasty, postoperative day #2. 2. History of hypertension. 3. History of coronary artery disease. 4. History of prostate cancer. PLAN: We will continue present supportive care while we are awaiting [facility]. He will continue with his physical therapy for strengthening and conditioning. Orthopedic issues will be per Dr. Kelton Nielson, orthopedic surgeon. I have encouraged good pulmonary hygiene and until transfer we will continue to monitor him closely and follow as needed. #[id number] [facility]
[2019-06-28] MEDS: DOCUSATE CALCIUM 240 MG CAP PO SCH (20:23)
[2019-06-28] MEDS: SIMVASTATIN 20 MG TAB PO SCH (20:23)
[2019-06-29] MEDS: ACETAMINOPHEN 325 MG TAB PO PRN (05:41)
[2019-06-29] MEDS: OMEPRAZOLE CAP 20 MG CAP PO SCH (05:41)
[2019-06-29 06:26] VITALS: TEMP 98.2
[2019-06-29] MEDS: CELECOXIB 100 MG CAP PO SCH (07:30)
[2019-06-29] MEDS ORDERED: SODIUM CHLORIDE 0.9% 100ML 100 ML IVPB ONE (07:57)
[2019-06-29] MEDS ORDERED: ceFAZolin SODIUM 1 GM VIAL ONE (07:57)
[2019-06-29] MEDS: ceFAZolin SODIUM 2 GM in SODIUM CHLORIDE 0.9% 100ML 100 ML IVPB SCH (08:03)
[2019-06-29] MEDS: MAGNESIUM OXIDE 400 MG TAB PO SCH (08:03)
[2019-06-29] MEDS: TAMSULOSIN 0.4 MG CAP PO SCH (08:03)
[2019-06-29] MEDS: MULTIPLE VITAMINS W/ MINERALS 1 EA TAB PO SCH (08:03)
[2019-06-29] MEDS: IV SET AND CAP CHANGE INJ INJ SCH (08:04)
[2019-06-29] MEDS: LISINOPRIL 5 MG TAB PO SCH (08:04)
[2019-06-29] MEDS: SODIUM CHLORIDE 0.9% (FLUSH) 10 ML SYG IV SCH (08:04)
[2019-06-29 09:52] VITALS: BP 126/79; O2SAT 95
[2019-06-29] MEDS: VANCOMYCIN HCL INJ 1,000 MG, VANCOMYCIN HCL INJ 500 MG in SODIUM CHLORIDE 0.9% 250ML 25... IVPB SCH (11:22)
[2019-06-29] MEDS ORDERED: MAGNESIUM HYDROXIDE 30 ML UD PO ONE (21:00)
[2019-06-29] MEDS ORDERED: BISACODYL SUPPOSITORY 10 MG PR ONE (21:00)
--- NOTE | 2019-07-06 11:59 | DS ---
SUPERVISING PHYSICIAN: Sunday Mcmullen MD DISCHARGE DIAGNOSIS: 1. Left knee osteoarthritis status post left total knee arthroplasty, postoperative day #3. 2. History of hypertension on medications. 3. History of coronary artery disease. 4. History of prostate cancer. 5. History of urinary retention. HISTORY OF PRESENT ILLNESS: This is a 78-year-old male patient with a history of left knee osteoarthritis that failed conservative measures. The patient was admitted and underwent elective left total knee arthroplasty today per Dr. Kelton Nielson, orthopedic surgeon. There were no intraoperative complications. He was admitted to the Medical/Surgical Unit after his step-up in no distress. Initially, the patient was alert and oriented, but at times a bit drowsy. He followed commands. No focal deficits were noted. HOSPITAL COURSE: His pain was well controlled and he started his physical therapy for strengthening and conditioning. There were no surgical complications. At times, he got somewhat confused. There is most likely an undiagnosed history of some dementia. His daughter had concerns about his discharge, so initially we were going to have him evaluated by [facility] and he was actually accepted at the [facility] rehab facility in [place], but his daughter requested that he be sent to a rehab hospital in [place] as he had been a patient there in the past. OTILIO Ledezma, facilitated the transfer to [facility] at the request of the daughter. He was accepted. At some points during his physical therapy, he had difficulty completing the tasks, but his vital signs remained stable, his lab work remained stable. There were no complications to the incisional site. His Dias catheter had been discontinued per protocol. He was unable to void at the specified time. A coude catheter was placed and he had a 1000 mL out and it was clamped off. Shortly thereafter, it was unclamped and another 1000 was returned. Due to his difficulty voiding, he was discharged with the catheter in place. Dr. Nielson requested that the patient be discharged on antibiotics due to his catheter being continued. He was given Bactrim and today, he is being discharged to the facility in [place] in stable condition. His vital signs are stable. His labs have been stable. His incision is well approximated with a very small amount of edema surrounding the incision as well as some mild erythema, but there are no signs or symptoms of complications or infection. Dr. Nielson and Stefany both were in the room when he was discharged. The knee was examined. The family was at the bedside. He will be discharged to the [place] rehab facility. LABORATORY: Postoperative hemoglobin 12.5, hematocrit 37. Creatinine was 1.10. Urine drug screen was negative on admission. RADIOLOGY: His radiology reports are per the EMR. DISCHARGE PLAN: The patient will be discharged to [facility] in [place], [place]. He is being discharged there for rehab. He is in good condition. His previous diet is to be resumed. He is to increase his activity as per physical therapy. He is to followup with Dr. Kelton Nielson within the next 2 weeks. In addition to his routine medications, he is to have 10 additional days of Xarelto 10 mg daily. He is also to have Bactrim b.i.d. until discontinuing his Dias catheter. He was also sent on tramadol for pain. His CPM machine can be used 3 times daily and p.r.n. for 2 to 3 hours per time. The facility was instructed to do bladder training to discontinue Dias catheter as appropriate and to continue his Bactrim until the catheter is discontinued. He is to return to the hospital or followup with Dr. Nielson for any problems or complications. DISCHARGE MEDICATIONS: 1. Simvastatin. 2. Omeprazole. 3. Lisinopril. 4. Aspirin. 5. Flomax. 6. Nitroglycerin. 7. Multivitamins. 8. Cyclobenzaprine. 9. Docusate sodium. 10. Xarelto. 11. Bactrim. 12. Tramadol. [facility][id number] [facility]
== END 2019-06-29 12:30 | DRG 470 ==
LOC: AMB 05:39 → MS 11:30
PROVIDERS: ADMIT Orthopaedic Surgery; ATTEND Nurse Practitioner Acute Care
PROC: 0SRD0J9 Replacement of Left Knee Joint with Synthetic Substitute, Cemented, Open Approach (ICD-10-PCS; principal; 2019-06-27)
DX: M17.12 Unilateral primary osteoarthritis, left knee (principal); I25.10 Atherosclerotic heart disease of native coronary artery without angina pectoris; I10 Essential (primary) hypertension; R33.9 Retention of urine, unspecified; F03.90 Unspecified dementia, unspecified severity, without behavioral disturbance, psychotic disturbance, mood disturbance, and anxiety; Z95.1 Presence of aortocoronary bypass graft; Z79.82 Long term (current) use of aspirin; Z88.8 Allergy status to other drugs, medicaments and biological substances; Z87.891 Personal history of nicotine dependence; Z85.46 Personal history of malignant neoplasm of prostate

== ENCOUNTER 2019-06-30 11:29 | Inpatient (IN) | payer MEDICARE, OTHER ==
--- NOTE | 2019-06-30 11:53 | ED.PDOC ---
History of Present Illness - General Stated Complaint: left knee redness and fever Time Seen by Provider: 06/30/19 11:44 Source: patient, RN notes reviewed, Vital Signs reviewed, family Exam Limitations: no limitations - Additional Information: this is a 78-year-old gentleman who presents to the ER with complaints of left knee redness, swelling, and fever. He has a history of hypertension, coronary artery disease, and BPH. He had total knee replacement of the left knee by Dr. walsh on Tuesday the . He was discharged to rehabilitation center yesterday. He was placed on Bactrim DS. He called his daughter in the tube station attendant hours to come and get him because of dissatisfaction with the rehabilitation center and [facility] where he was transferred. Today that the left knee became red, hot, and swollen. She took pictures. The director of the rehabilitation facility Dr. Sage was called in to take a look at the knee and clindamycin and Levaquin were started. He has had 2 doses of clind amycin and 1 dose of Levaquin thus far. He was noted to have fever yesterday as well. He also complains that he had chills for the past 2 days. He denies any pain at present. His daughter does state that the redness is improved from yesterday. She gave him some Ultram as well as ibuprofen prior to arrival. He denies any pain currently. Patient states that he has been able to eat. He also admits that he has passing gas and having bowel movements. He does have a Dias catheter still in secondary to having a history of BPH and having inability to void shortly after surgery. - History of Present Illness Allergies/Adverse Reactions: Allergies Lorazepam Allergy (Severe, Verified 06/30/19 11:51) Anaphylaxis Hydromorphone [From Dilaudid] Allergy (Intermediate, Verified 06/30/19 11:51) Other SEVER HALLUSIONATIONS/DELUSIONS Meperidine [From Demerol HCl] Allergy (Intermediate, Verified 06/30/19 11:51) Other SEVERE HALLUCINATIONS/DELUSIONS. Meloxicam Allergy (Verified 06/30/19 11:51) Home Medications: Ambulatory Orders Aspirin [Aspirin EC Low Dose] 81 mg PO DAILY 01/14/17 Lisinopril 5 mg PO DAILY 01/14/17 Omeprazole 20 mg PO DAILY 01/14/17 Simvastatin [Zocor] 40 mg PO DAILY 01/14/17 Multiple Vitamins W/ Minerals [Mens 50+ Multi Vitamin &] 1 tab PO DAILY 04/20/19 Nitroglycerin 0.4 mg Tab [Nitrostat] 1 ea SL PRN 04/20/19 Tamsulosin [Flomax] 0.4 mg PO QD 04/20/19 Cyclobenzaprine HCl [Flexeril] 10 mg PO Q8H PRN tab 06/29/19 Docusate Calcium [Surfak] 240 mg PO BEDTIME cap 06/29/19 Rivaroxaban [Xarelto] 10 mg PO DAILY 10 Days #10 tab 06/29/19 Sulfa/Trimeth 800/160 (Ds) Tab [Bactrim DS] 1 tablet PO BID #20 tab 06/29/19 Tramadol HCl 50 mg PO Q4H PRN #40 tab 06/29/19 Clindamycin HCl 300 mg PO TID 06/30/19 levoFLOXacin [Levaquin] 500 mg PO DAILY 06/30/19 Review of Systems - Review of Systems Constitutional: States: chills, fever, malaise EENTM: States: no symptoms reported Respiratory: States: no symptoms reported Cardiology: States: no symptoms reported Gastrointestinal/Abdominal: States: no symptoms reported Genitourinary: States: other - still has Dias in place Musculoskeletal: States: joint pain, joint swelling, other - redness of left knee, no drainage Skin: States: change in color, other - redness of left knee Neurological: States: no symptoms reported Endocrine: States: no symptoms reported Hematologic/Lymphatic: States: no symptoms reported All other Systems: Reviewed and Negative Past Medical History (General) - Patient Medical History Hx Seizures: No Hx Stroke: No Hx Asthma: No Hx of COPD: No Hx Cardiac Disorders: Yes - Hypercholesterolemia Hx Congestive Heart Failure: No Hx Pacemaker: No Hx Hypertension: Yes Hx Diabetes: No Hx Gastroesophageal Reflux: Yes Hx MRSA: No - Vaccination History Hx Influenza Vaccination: Yes Hx Pneumococcal Vaccination: No - Social History Hx Tobacco Use: Yes Hx Alcohol Use: No Hx Substance Use: No Hx Physical Abuse: No Hx Emotional Abuse: No Family Medical History - Family History Father Family History: Unknown Living Status: Hx Cardiac Disease: Yes - parents Physical Exam - Physical Exam General Appearance: Alert, Comfortable, No apparent distress Eyes, Ears, Nose, Throat: PERRL/EOMI, normal ENT inspection, pharynx normal Neck: non-tender, full range of motion, supple, normal inspection Cardiovascular/Respiratory: regular rate, rhythm, no M/R/G, normal peripheral pulses, no JVD, normal breath sounds, no respiratory distress Gastrointestinal/Abdominal: non-tender, no organomegaly Back: normal inspection, no CVA tenderness Thigh/Hip: normal inspection Leg: swelling - 1+ pitting edema to the left lower extremity pretibial Knee: limited ROM, soft tissue tenderness, swelling, other - the incision is intact without any evidence of drainage there is erythema surrounding the left knee incision and surrounding tissues, when compared to the photos taken yesterday there has been improvement noted., There was a lot of erythema noted to the agents medial thigh yesterday that is not present today. Ankle: normal inspection, non-tender, normal ROM Foot: normal inspection, non-tender, other - left foot nice and warm Neuro/Tendon: normal sensation, normal motor functions, normal tendon functions Mental Status: alert, oriented x 3 Skin: warm/dry, other - surrounding erythema of the left knee around the incision site Progress - Progress Progress: 06/30/19 12:09 MDM: Postoperative infection, cellulitis, leukocytosis, electrolyte abnormalities, bacteremia. Patient will have laboratory evaluation performed along with chest x-ray and blood cultures. We will go ahead and contact Dr. walsh as well to inform him of patient's status. 06/30/19 13:[address] Walsh. 06/30/19 13:[address] Walsh. He is looking at the pictures sent from yesterday and today and will be making a decision on plans. Family states that they would like to go to the rehab first recommended by Dr. Walsh in [place] if they are discharged. 06/30/19 13:40 Dr. Walsh would like to have the pt admitted to [facility]. - Results/Orders Results/Orders: No evidence of pulmonary infiltrates. IMPRESSION: Postoperative changes in the mediastinum, otherwise unremarkable e xam. Electronically signed by: Juan Jose Orourke MD 06/30/2019 12:39 PM ANATOMIC PATHOLOGY ASSISTANT Departure - Departure Clinical Impression: urosepsis, Fever and chills Total knee replacement status Qualifiers: Laterality: left Qualified Code(s): Z96.652 - Presence of left artificial knee joint Time of Disposition: 13:42 Disposition: Admit Patient Condition: Good Referrals: Ronaldo Mustafa III, MD [Primary Care Provider] - 1-2 Weeks Home Medications: Ambulatory Orders Aspirin [Aspirin EC Low Dose] 81 mg PO DAILY 01/14/17 Lisinopril 5 mg PO DAILY 01/14/17 Omeprazole 20 mg PO DAILY 01/14/17 Simvastatin [Zocor] 40 mg PO DAILY 01/14/17 Multiple Vitamins W/ Minerals [Mens 50+ Multi Vitamin &] 1 tab PO DAILY 04/20/19 Nitroglycerin 0.4 mg Tab [Nitrostat] 1 ea SL PRN 04/20/19 Tamsulosin [Flomax] 0.4 mg PO QD 04/20/19 Cyclobenzaprine HCl [Flexeril] 10 mg PO Q8H PRN tab 06/29/19 Docusate Calcium [Surfak] 240 mg PO BEDTIME cap 06/29/19 Rivaroxaban [Xarelto] 10 mg PO DAILY 10 Days #10 tab 06/29/19 Sulfa/Trimeth 800/160 (Ds) Tab [Bactrim DS] 1 tablet PO BID #20 tab 06/29/19 Tramadol HCl 50 mg PO Q4H PRN #40 tab 06/29/19 Clindamycin HCl 300 mg PO TID 06/30/19 levoFLOXacin [Levaquin] 500 mg PO DAILY 06/30/19 Decision To Admit - Decistion To Admit Decision to Admit Date: 06/30/19 Decision to Admit Time: 13:40
[2019-06-30] MEDS: SODIUM CHLORIDE 0.9% 1000ML 1,000 ML IVS PRN ×3 (12:22→18:33)
--- NOTE | 2019-06-30 12:41 | RAD ---
EXAM DESCRIPTION: Chest,1 View CLINICAL HISTORY: fever, post op COMPARISON: April 20, 2019 FINDINGS: Again seen are postoperative changes in the mediastinum. The cardiomediastinal silhouette is otherwise unremarkable. The right costophrenic angle is excluded from this exam, but no airspace consolidation or pleural effusion is seen. The bronchovascular markings are within normal limits, and the lungs are not hyperinflated. There is no pneumothorax or acute fracture. IMPRESSION: Postoperative changes in the mediastinum, otherwise unremarkable exam. Electronically signed by: Juan Jose Orourke MD 06/30/2019 12:39 PM SPIKE MAKER
--- NOTE | 2019-06-30 15:22 | HP ---
SUPERVISING PHYSICIAN: Sunday Mcmullen M.D. CHIEF COMPLAINT: Poor care at a nursing facility. HISTORY OF PRESENT ILLNESS: This is a 78 year-old male patient who came to the Emergency Room with complaints that he had been transferred to a manager terminal care facility and felt like he was not being cared for. His daughter was somewhat in a panic and felt that her dad did not receive the therapy that she expected. She felt that the facility was sub par in its cleanliness. She was quite concerned due to the lack of rehab as well as the care he received. He had a left total knee arthroplasty done on 06/26/19. He had been transferred less than 24 hours prior to his admission to the Emergency Room. She had some concern with some mild redness around the incisional area. She also was concerned that his antibiotics were not started as well as his Dias catheter was to be in place. At some point he was seen by the facility physician and he was started on clindamycin and Levaquin. He denied any pain in the Emergency Room. He did continue to have a Dias catheter as he has a history of benign prostatic hypertrophy and had some urinary retention on his previous hospitalization. His daughter was called at 4:30 in the morning and she went to get him and brought him back to our facility. His vital signs showed temperature 96.5, heart rate 93, blood pressure 99/74, respiratory rate 18, O2 saturation 95% on room air. Laboratory studies were done. WBCs were 6,900 with hemoglobin 11.5, hematocrit 33.6. Sodium was slightly low at 134, chloride 99. Other electrolytes were within normal limits. Liver function tests were unremarkable. Lactic acid 1. Urine showed 100 urine protein, moderate urine blood, small urine bilirubin, small urine leukocyte esterase, 10 to 20 urine RBCs, 10 to 20 urine WBCs and 2+ urine bacteria. It is to be noted he was on Bactrim when he left this facility as well as on transfer. The patient was given some Tramadol as well as some fluids. Dr. Nielson was called. Dr. Nielson called me for admission. We did examine the patient in the Emergency Room. It is to be noted that the knee had some redness around his incisional site with a very small amount of edema. There was no drainage. No fluctuance. There was only mild tenderness. We will place the patient in observation in the hospital for a urinary tract infection. PAST MEDICAL HISTORY: 1. Coronary artery disease. 2. Hypertension. 3. Erectile dysfunction. 4. Prostate cancer. 5. Upper GI bleed secondary to a gastric ulcer. 6. Cervical spine stenosis. PAST SURGICAL HISTORY: 1. Bilateral inguinal hernia repair. 2. Coronary artery bypass graft times 5. 3. Left shoulder surgery. 4. Cervical corpectomy. 5. EGD in the past. 6. Left total knee arthroplasty times 1 in 2019. MEDICATIONS: Per the EMR and awaiting verification. ALLERGIES: DEMEROL, DILAUDID, ATIVAN, MELOXICAM. FAMILY HISTORY: Noncontributory. SOCIAL HISTORY: The patient is retired. He is . He has one child. He quit smoking in 2006. He drinks alcohol on occasion. No illicit drugs. REVIEW OF SYSTEMS: As per the History of Present Illness. No additional symptoms other than per the History of Present Illness. PHYSICAL EXAMINATION: VITAL SIGNS: Temperature 96.5, heart rate 56, blood pressure 126/66, respiratory rate 15, satting 97% on room air. GENERAL: This is a 78 year-old male patient lying on the gurney in the Emergency Room. He is in no acute distress. HEENT: Normocephalic, atraumatic. Pupils are equal and reactive. Oropharynx is clear. NECK: Supple without mass. RESPIRATORY: Essentially clear to auscultation bilaterally. CHEST: There is equal rise and fall of the chest with inspiration and expiration. CARDIOVASCULAR: Regular rate and rhythm. GASTROINTESTINAL: Abdomen is soft, nondistended, nontender. Bowel sounds are positive. GENITOURINARY: The patient has a Dias catheter bag. His urine is dark yellow. EXTREMITIES: His incision to his left knee is well approximated. There is no evidence of drainage. There is a small amount of erythema surrounding the left knee incision with a mild amount of edema in that left knee. There are no signs or symptoms of complications. Bilateral pedal pulses are palpable at +2. SKIN: Warm and dry. NEUROLOGIC: Awake, alert and oriented times three. Cranial nerves II-XIII are grossly intact as tested. LABORATORY: Labs and films are as per the history of present illness. ASSESSMENT: 1. Urinary tract infection. 2. Status post left total knee arthroplasty performed on 06/26/19. 3. History of hypertension. 4. Coronary artery disease. 5. Prostate cancer with benign prostatic hypertrophy. PLAN: We will place the patient in observation. I will continue treating him with his Bactrim. I will also add Rocephin. We will consult Forming Department End Finder for possible [facility] referral. He was originally accepted to [facility] but he decided to go to the [facility]. His home medications will be restarted, including the Xarelto that he was put on for postoperative deep venous thrombosis prophylaxis. I will also consult Dr. Nielson for any orthopedic issues. Physical Therapy has been consulted. Will continue to monitor closely and follow as needed. #[id number] [facility]
[2019-06-30] MEDS ORDERED: ACETAMINOPHEN 325 MG TAB PO PRN (17:45)
[2019-06-30] MEDS ORDERED: ONDANSETRON INJ 4 MG/2 ML VIAL IV PRN (17:45)
[2019-06-30] MEDS ORDERED: MAGNESIUM HYDROXIDE 30 ML UD PO ONE (17:51)
[2019-06-30] MEDS ORDERED: cefTRIAXone SODIUM 1 GM VIAL ONE (18:30)
[2019-06-30] MEDS ORDERED: cefTRIAXone SODIUM 1 GM in SODIUM CHL 0.9% 50ML MIN-BAG+ 50 ML IVPB ONE (18:30)
[2019-06-30] MEDS: IV SET AND CAP CHANGE INJ INJ SCH (18:33)
[2019-06-30] MEDS ORDERED: SODIUM CHLORIDE 0.9% (FLUSH) 10 ML SYG IV SCH (21:00)
[2019-06-30] MEDS: DOCUSATE CALCIUM 240 MG CAP PO SCH (21:53)
[2019-07-01] MEDS: SODIUM CHLORIDE 0.9% 1000ML 1,000 ML IVS PRN ×2 (05:29→19:14)
[2019-07-01] MEDS ORDERED: RIVAROXABAN 10 MG TAB ONE (07:53)
[2019-07-01] MEDS ORDERED: SODIUM CHLORIDE 0.9% 50ML 50 ML ONE (07:54)
[2019-07-01] MEDS ORDERED: ASPIRIN (ENTERIC COATED) 81 MG TAB PO ONE (07:54)
[2019-07-01] MEDS ORDERED: OMEPRAZOLE CAP 20 MG CAP ONE (07:54)
[2019-07-01] MEDS ORDERED: cefTRIAXone SODIUM 1 GM VIAL ONE (07:54)
[2019-07-01] MEDS ORDERED: LISINOPRIL 5 MG TAB ONE (07:54)
[2019-07-01] MEDS ORDERED: traMADol HCL 50 MG TAB ONE (07:55)
[2019-07-01] MEDS: traMADol HCL 50 MG TAB PO PRN ×2 (08:12→15:36)
[2019-07-01] MEDS: cefTRIAXone SODIUM 1 GM in SODIUM CHL 0.9% 50ML MIN-BAG+ 50 ML IVPB SCH (08:12)
[2019-07-01] MEDS: OMEPRAZOLE CAP 20 MG CAP PO SCH (08:13)
[2019-07-01] MEDS: RIVAROXABAN 10 MG TAB PO SCH (08:13)
[2019-07-01] MEDS: LISINOPRIL 5 MG TAB PO SCH (08:13)
[2019-07-01] MEDS: ASPIRIN (ENTERIC COATED) 81 MG TAB PO SCH (08:13)
[2019-07-01] MEDS: SULFA/TRIMETH 800/160 (DS) TAB 1 EA TAB PO SCH ×3 (08:18→20:17)
[2019-07-01] MEDS: TAMSULOSIN 0.4 MG CAP PO SCH (08:20)
[2019-07-01] MEDS ORDERED: CYCLOBENZAPRINE HCL 5 MG TAB ONE (15:30)
[2019-07-01] MEDS: CYCLOBENZAPRINE HCL 10 MG TAB PO PRN (15:36)
[2019-07-01] MEDS: SIMVASTATIN 20 MG TAB PO SCH (20:16)
[2019-07-01] MEDS: DOCUSATE CALCIUM 240 MG CAP PO SCH (20:17)
[2019-07-02] MEDS: SODIUM CHLORIDE 0.9% 1000ML 1,000 ML IVS PRN (02:04)
[2019-07-02] MEDS: OMEPRAZOLE CAP 20 MG CAP PO SCH (05:41)
[2019-07-02] MEDS ORDERED: SODIUM CHL 0.9% 50ML MIN-BAG+ 50 ML IVPB ONE (07:57)
[2019-07-02] MEDS ORDERED: cefTRIAXone SODIUM 1 GM VIAL ONE (07:58)
--- NOTE | 2019-07-02 08:18 | PN ---
SUPERVISING PHYSICIAN: Sunday Mcmullen MD DATE: 07/01/2019 SUBJECTIVE: The patient is resting in bed. He is asleep. He awakens easily. He has no complaints of nausea, vomiting, chest pain, constipation or knee pain. We discussed his discharge planning and he has decided he would do whatever was recommended by Dr. Nielson. OBJECTIVE: VITAL SIGNS: Temperature 98.5. Heart rate 86. Blood pressure 116/72. Respiratory rate 18. O2 saturation 98% on room air. RESPIRATORY: Essentially clear to auscultation bilaterally. CARDIAC: Regular rate and rhythm. GASTROINTESTINAL: Abdomen is soft, nondistended, nontender. Bowel sounds are positive. EXTREMITIES: His left knee incision is well approximated. There is no drainage. There is no minimal erythema surrounding the incisional site. There is minimal edema. Yesterday, he actually had some edema to his lower extremity, but that has resolved. Bilateral pedal pulses are palpable at +2. NEUROLOGIC: Awake, alert and oriented times three. LABORATORY: WBC 6.8, hemoglobin 11.3, hematocrit 32.4. Electrolytes are within normal limits except calcium slightly low at 8.3. Urine culture is pending. Preliminary blood cultures show no growth after 48 hours. All other labs and films have been reviewed via the EMR. ASSESSMENT: 1. Urinary tract infection. 2. Status post left total knee arthroplasty performed on 06/26/2019. 3. History of hypertension. 4. Coronary artery disease. 5. Prostate cancer with benign prostatic hypertrophy. PLAN: We will continue present supportive care. The patient will continue in observation and we will monitor him closely. We will hold on any lab for in the morning as his labs are fairly stable. I have consulted Reconciliation Specialist and we will discuss with Dr. Nielson his discharge planning, whether it be [facility] in [place] or a Swing Bed admission here at the hospital. Orthopedic issues will be per Dr. Kelton Nielson. He will continue his physical therapy for strengthening and conditioning. We will continue to monitor the patient closely and follow as needed. #[id number] [facility]
--- NOTE | 2019-07-02 08:56 | CONS ---
CHIEF COMPLAINT: 1. Poor care at nursing facility. 2. Urinary retention. HISTORY OF PRESENT ILLNESS: Mr. Stover is a 78-year-old male that had a total knee arthroplasty done on 06/26/2019. His postoperative course was uneventful, however, he was transferred to a nursing facility for longer term care. He had some issues there and he called his daughter and made her come get him. After that, she brought him back because of inability to provide the care at home. He presented to the Emergency Room. He had some erythema of the knee, but no significant increase in pain. Upon presentation to the Emergency Room, there were no fevers. Labs were done in the Emergency Room and showed a normal white blood cell count and no fevers. I met him in the Emergency Room and discussed his condition and options with his family and him and he decided admission at this point would be the best way to go until we can get his Dias catheter out. PAST MEDICAL HISTORY: 1. Coronary artery disease. 2. Hypertension. 3. Erectile dysfunction. 4. Prostate cancer. 5. Cervical stenosis. PAST SURGICAL HISTORY: 1. Bilateral inguinal herniorrhaphy. 2. Cardiac bypass. 3. Shoulder surgery. 4. Cervical corpectomy. 5. EGD. 6. Total knee arthroplasty. MEDICATIONS: Please see his current EMR. ALLERGIES: DEMEROL, DILAUDID, ATIVAN, MELOXICAM. SOCIAL HISTORY: The patient does not drink, smoke or use any illicit drugs. FAMILY HISTORY: None pertinent to today's complaint. REVIEW OF SYSTEMS: Negative except as indicated in the History of Present Illness. PHYSICAL EXAMINATION: VITAL SIGNS: Blood pressure 126/62. Heart rate 56. Temperature 96.5. Respirations 15. O2 saturation 97% on room air. MENTAL STATUS: The patient is awake, alert, and is able to give a good history and participate in the physical. The patient is oriented to person, place and time. SKIN: Normal tone and turgor. HEENT: Normocephalic, atraumatic. Pupils equal, round and reactive. Mucosal membranes are moist. NECK: Normal range of motion. No thyromegaly, no lymphadenopathy. CHEST: Normal respiratory excursion. CARDIAC: Regular rate and rhythm. No murmurs, rubs or gallops. MUSCULOSKELETAL: The bilateral upper extremities show full active range of motion. He has intact sensation. He has warm and well perfused extremities. Skin is intact. Strength is 5/5. The right lower extremity shows no significant pain with palpation or range of motion. Skin is intact. He is moving the extremity well. Strength is 5/5. The left lower extremity shows no pain with range of motion of the hip. He has typical postoperative swelling and bruising of the knee. There is minor erythema at the incision tip consistent with surgical wound. He has no significant pain to palpation of the knee. There is no significant increased warmth in the knee. He has full extension of the knee and he is bending it to 90 degrees without significant pain. He has full range of motion in the digits. Sensation is intact. Skin is intact. ASSESSMENT: 1. Urinary tract infection. 2. Urinary retention. 3. Status post total knee arthroplasty. PLAN: The plan at this point is for admission. We are going to have him on antibiotics, but we will also be doing physical therapy. He will do bladder training to get the catheter out as soon as we can. #[id number] [facility]
--- NOTE | 2019-07-02 09:08 | PN ---
DATE: 07/02/2019 SUBJECTIVE: He is doing pretty well although he is complaining of this morning of a sore throat. OBJECTIVE: Afebrile. Vital signs stable. His knee shows no significant erythema. He has no pain to palpation of the knee. There is no increased warmth and no drainage. Sensation in the extremity is intact. He has mild edema consistent with postoperative total knee arthroplasty. ASSESSMENT: 1. Status post total knee arthroplasty. 2. Urinary retention. 3. Urinary tract infection. PLAN: The plan at this point is for continuation of antibiotics. We are going to be doing bladder training for him so we can remove the catheter and then will consider transfer to an inpatient rehab facility after that. #[id number] [facility]
[2019-07-02] MEDS: TAMSULOSIN 0.4 MG CAP PO SCH (09:28)
[2019-07-02] MEDS: SULFA/TRIMETH 800/160 (DS) TAB 1 EA TAB PO SCH ×2 (09:28→20:06)
[2019-07-02] MEDS: LISINOPRIL 5 MG TAB PO SCH (09:28)
[2019-07-02] MEDS: RIVAROXABAN 10 MG TAB PO SCH (09:28)
[2019-07-02] MEDS: ASPIRIN (ENTERIC COATED) 81 MG TAB PO SCH (09:28)
[2019-07-02] MEDS: cefTRIAXone SODIUM 1 GM in SODIUM CHL 0.9% 50ML MIN-BAG+ 50 ML IVPB SCH (09:29)
[2019-07-02] MEDS ORDERED: CYCLOBENZAPRINE HCL 5 MG TAB ONE (19:05)
--- NOTE | 2019-07-02 19:43 | PN ---
SUPERVISING PHYSICIAN: Maycol Negro MD DATE: 07/02/2019 SUBJECTIVE: The patient is resting comfortably. He just finished eating breakfast. He has not had any complaints of chest pains, nausea, vomiting or diarrhea. OBJECTIVE: VITAL SIGNS: Temperature 98.4. Pulse 77. Blood pressure 130/72. Respirations 16. Saturation 93% on room air. GENERAL: The patient is resting comfortably, appears to be in no acute distress. He is alert. CHEST: Lungs are clear to auscultation bilaterally. HEART: Regular rate and rhythm. ABDOMEN: Soft, nontender. Positive bowel sounds. EXTREMITIES: Right knee has a small area of erythema with no signs of infection. Incision site is clean and dry without any complications. Distal pulses 2+ bilaterally. NEUROLOGIC: Alert and oriented times three. LABORATORY: No additional laboratory studies today. MICROBIOLOGY: Urine culture pending. Blood cultures are negative at 48 hours. ASSESSMENT: 1. Urinary tract infection, culture pending. 2. Status post left total knee arthroplasty performed on 06/26/2019. 3. History of hypertension. 4. Coronary artery disease. 5. Prostate cancer with benign prostatic hypertrophy with some urinary retention requiring Dias catheter placement. PLAN: We are still waiting on [facility] referral to [facility]. We will continue current plan of care at this point with treatment with antibiotics for urinary tract infection awaiting culture results. I anticipate he will transfer either later today or in the morning to [facility]. We will continue with physical therapy. He will continue on Xarelto. Until we can transfer him to outpatient management, we will continue to monitor and treat as needed. #[id number] [facility]
[2019-07-02] MEDS: DOCUSATE CALCIUM 240 MG CAP PO SCH (20:06)
[2019-07-02] MEDS: CYCLOBENZAPRINE HCL 10 MG TAB PO PRN (20:07)
[2019-07-02] MEDS: SIMVASTATIN 20 MG TAB PO SCH (20:07)
[2019-07-02] MEDS: traMADol HCL 50 MG TAB PO PRN (23:29)
[2019-07-03] MEDS: OMEPRAZOLE CAP 20 MG CAP PO SCH (06:07)
[2019-07-03] MEDS ORDERED: SODIUM CHL 0.9% 50ML MIN-BAG+ 50 ML IVPB ONE (07:15)
[2019-07-03] MEDS ORDERED: cefTRIAXone SODIUM 1 GM VIAL ONE (07:16)
[2019-07-03] MEDS: TAMSULOSIN 0.4 MG CAP PO SCH (08:15)
[2019-07-03] MEDS: RIVAROXABAN 10 MG TAB PO SCH (08:15)
[2019-07-03] MEDS: ASPIRIN (ENTERIC COATED) 81 MG TAB PO SCH (08:15)
[2019-07-03] MEDS: cefTRIAXone SODIUM 1 GM in SODIUM CHL 0.9% 50ML MIN-BAG+ 50 ML IVPB SCH (08:15)
[2019-07-03] MEDS: SULFA/TRIMETH 800/160 (DS) TAB 1 EA TAB PO SCH ×2 (08:15→20:24)
[2019-07-03] MEDS: LISINOPRIL 5 MG TAB PO SCH (08:15)
[2019-07-03] MEDS: traMADol HCL 50 MG TAB PO PRN ×2 (10:19→17:08)
--- NOTE | 2019-07-03 13:18 | PN ---
DATE: 07/03/2019 SUBJECTIVE: He is doing well and has no pain in the knee. OBJECTIVE: Afebrile. Vital signs stable. Bladder training is continuing although he continues to have his catheter in place. ASSESSMENT: 1. Status post total knee arthroplasty. 2. Urosepsis. 3. Urinary retention. PLAN: The plan at this point is to continue with his antibiotics and his bladder training. #[id number] [facility]
--- NOTE | 2019-07-03 14:26 | PN ---
SUPERVISING PHYSICIAN: Maycol Negro MD DATE: 07/03/2019 SUBJECTIVE: The patient is not complaining of any nausea, vomiting or chest pain. His cultures did come back and showed no significant growth. However, I believe this is probably due to the fact that he was on antibiotics at the time of collection. He has visited with [facility] liaison and I have agreed to transfer to [facility] in [place] as soon as they have a bed, which at this point appears to be tomorrow morning. He remains afebrile. OBJECTIVE: VITAL SIGNS: Temperature 98.7. Pulse 84. Blood pressure 137/73. Respirations 18. Saturation 94% on room air. I&Os are showing a negative balance of 1970 with 1980 in, 3950 out. Weight 80.1 kg. GENERAL: The patient is resting comfortably, appears to be in no acute distress. He is alert. CHEST: Lungs are clear to auscultation. HEART: Regular rate and rhythm. ABDOMEN: Soft, nontender. Positive bowel sounds. EXTREMITIES: Right knee continues to show just a small area of erythema with no signs of infection. Incision site is clean and dry without any signs of complications. Distal pulses 2+ bilaterally. NEUROLOGIC: Alert and oriented times three. LABORATORY: No additional laboratory studies today. MICROBIOLOGY: Urine culture final results showed no growth. Blood cultures remain negative after 3 days. RADIOLOGY: No additional radiographic studies. ASSESSMENT: 1. Urinary tract infection, cultures showing no growth with the patient having been on antibiotics prior to collection of specimen. 2. Urinary retention, possibly contributing to #1, requiring Dias placement. 3. Status post left total knee arthroplasty performed on 06/26/2019. 4. History of hypertension. 5. Coronary artery disease. 6. Prostate cancer with benign prostatic hypertrophy with some urinary retention requiring Dias catheter placement. PLAN: We will start some bladder training today with anticipation of removing his Dias catheter before he goes to [facility]. I did talk with [facility] and he has been accepted, but they do not have an open bed and anticipate this will occur in the morning. We will continue treatment with antibiotics for his urinary tract infection although he did not show any growth on the cultures. Again, I think this is due to the fact that he was started on antibiotics prior to collection of the urine for culture. Until we can transfer him to [facility], which hopefully will occur tomorrow, we will continue with physical therapy. He does continue on Xarelto. We will continue to monitor and treat as needed. #[id number] [facility]
[2019-07-03] MEDS ORDERED: CYCLOBENZAPRINE HCL 5 MG TAB ONE (17:04)
[2019-07-03] MEDS: CYCLOBENZAPRINE HCL 10 MG TAB PO PRN (17:08)
[2019-07-03] MEDS: IV SET AND CAP CHANGE INJ INJ SCH (18:07)
[2019-07-03] MEDS: SIMVASTATIN 20 MG TAB PO SCH (20:24)
[2019-07-03] MEDS: SODIUM CHLORIDE 0.9% (FLUSH) 10 ML SYG IV PRN (20:24)
[2019-07-03] MEDS: DOCUSATE CALCIUM 240 MG CAP PO SCH (20:24)
[2019-07-04] MEDS: OMEPRAZOLE CAP 20 MG CAP PO SCH (05:47)
[2019-07-04] MEDS ORDERED: SODIUM CHL 0.9% 50ML MIN-BAG+ 50 ML IVPB ONE (07:51)
[2019-07-04] MEDS ORDERED: cefTRIAXone SODIUM 1 GM VIAL ONE (07:51)
[2019-07-04] MEDS: TAMSULOSIN 0.4 MG CAP PO SCH (09:49)
[2019-07-04] MEDS: SULFA/TRIMETH 800/160 (DS) TAB 1 EA TAB PO SCH ×2 (09:49→20:17)
[2019-07-04] MEDS: LISINOPRIL 5 MG TAB PO SCH (09:49)
[2019-07-04] MEDS: RIVAROXABAN 10 MG TAB PO SCH (09:49)
[2019-07-04] MEDS: traMADol HCL 50 MG TAB PO PRN (09:49)
[2019-07-04] MEDS: cefTRIAXone SODIUM 1 GM in SODIUM CHL 0.9% 50ML MIN-BAG+ 50 ML IVPB SCH (09:50)
[2019-07-04] MEDS: ASPIRIN (ENTERIC COATED) 81 MG TAB PO SCH (09:50)
--- NOTE | 2019-07-04 10:40 | PN ---
DATE: 07/04/19 SUBJECTIVE: Mr. Stover is doing pretty well and is having more pain on the right than on the left. I think this stems from a hyperflexion incident that he had on both legs during his brief stay in the rehab center. Other than that, he has no significant complaints. OBJECTIVE: Afebrile. Vital signs stable. The wound is clean. There are no signs or symptoms of infection. ASSESSMENT: 1. Status post total knee arthroplasty. 2. Urosepsis. 3. Urinary retention. PLAN: At this point, I have suggested that we hold onto him and put him on Swing Bed status here in [place]. I would like to continue to monitor his urine output until we are sure he will not have to have a catheter replaced. We will continue with his physical therapy here while he is with us. #[id number] [facility]
--- NOTE | 2019-07-04 14:52 | US ---
EXAM DESCRIPTION: Bladder: ULTRASOUND. CLINICAL HISTORY: 78 years Male urinary retention COMPARISON: CT abdomen and pelvis August 2016. TECHNIQUE: Transcutaneous scanning: Sandoval-scale and Doppler modes. FINDINGS: Dimensions of the urinary bladder prior to voiding are 11.3 x 8.7 x 6.5 cm for an estimated volume 334.9 mL. Postvoid images of the bladder are 10.5 x 9.6 and 7.2 cm: 377.4 mL. Color Doppler of the bladder base showing no ureteral jets. Prostate gland is impressing on the base of the urinary bladder measuring 5.1 x 4.0 x 4.8 cm., Estimated volume almost 51 mL. Irregularity of the bladder mucosal where the prostate impresses on the bladder. No fluid around the prostate gland. IMPRESSION: 1. Essentially no change in bladder volume after voiding, with actual increased volume. Bilateral ureteral jets not detected by color Doppler. 2. Enlarged prostate gland impressing on the base of the urinary bladder. Displacement of mucosal by prostate gland, more likely than actual bladder mucosal lesion. Electronically signed by: Gunnar Perkins MD 07/04/2019 2:50 PM [employer] PROGRAMMER
[2019-07-04] MEDS: SODIUM CHLORIDE 0.9% (FLUSH) 10 ML SYG IV PRN (20:17)
[2019-07-04] MEDS: DOCUSATE CALCIUM 240 MG CAP PO SCH (20:17)
[2019-07-04] MEDS: SIMVASTATIN 20 MG TAB PO SCH (20:17)
[2019-07-05] MEDS: traMADol HCL 50 MG TAB PO PRN ×2 (03:51→20:00)
[2019-07-05] MEDS: OMEPRAZOLE CAP 20 MG CAP PO SCH (06:22)
--- NOTE | 2019-07-05 08:01 | PN ---
SUPERVISING PHYSICIAN: Maycol Negro MD DATE: 07/04/2019 SUBJECTIVE: The patient is doing well. He has been voiding since his catheter has been out. He has had multiple voids that were incontinent and unable to be measured. He denies any complaints. He has had no nausea, vomiting, diarrhea or chest pain. He has been afebrile. OBJECTIVE: VITAL SIGNS: Temperature 98.2. Pulse 63. Blood pressure 102/62. Respirations 18. Saturation 96% on room air. GENERAL: The patient is resting in a bedside chair, just finished lunch. He is alert. He appears to be in no acute distress. He appears to be at his baseline mental status. CHEST: Lungs are clear to auscultation. HEART: Regular rate and rhythm. ABDOMEN: Soft, nontender. Positive bowel sounds. EXTREMITIES: Right knee shows incision site clean and dry with minimal erythema. Distal pulses 2+ bilaterally. NEUROLOGIC: Alert and oriented times three. LABORATORY: No additional laboratory studies today. RADIOLOGY: He had a bladder ultrasound pre and post voiding which essentially was equivocal due to the fact that he had no significant change in his volume. Post voiding, he actually had increasing volume but immediately after he stood up, the nurses reported he had a large incontinent void that was significant in volume. He has not had any significant complaints of unable to void and has had good output as documented in his I&Os. ASSESSMENT: 1. Urinary tract infection, cultures showing no growth with the patient having been on antibiotics prior to collection of specimen. The patient is currently on antibiotic coverage including Rocephin and p.o. Bactrim. The patient is clinically stable. 2. Urinary retention, requiring catheterization previously, but without any symptoms post removal of catheter with a pre and post voiding trial that was equivocal with the patient having good output. 3. Status post left total knee arthroplasty performed on 06/26/2019. 4. History of hypertension. 5. Coronary artery disease. 6. Prostate cancer with benign prostatic hypertrophy with some urinary retention with no complications at this point with Dias catheter removed. PLAN: He had been accepted to [facility]. They do not have any male beds at this point, but anticipate they will have one in the morning. He has gone through bladder training and has done well. He is incontinent at times, but has had adequate output. We will continue, but change him to just oral Bactrim and discontinue his Rocephin based on culture findings and his clinical presentation. At this point, medically he is cleared for discharge to transfer to the rehab facility or outpatient management as needed. Until he can discharge to outpatient management, we will continue to monitor and treat as needed. #[id number] [facility]
--- NOTE | 2019-07-05 08:07 | PN ---
DATE: 07/05/19 SUBJECTIVE: Mr. Stover is aware to person and place, but did have a little bit of confusion overnight. OBJECTIVE: Afebrile. Vital signs stable. The wound is clean. There are no signs or symptoms of infection. He has no drainage. ASSESSMENT: 1. Status post total knee arthroplasty. 2. Urosepsis. 3. Dementia. PLAN: At this point, he is going to be doing ongoing physical therapy. He is scheduled to enter [facility] for long-term rehab. We also are going to continue to monitor his mental status. #[id number] [facility]
[2019-07-05] MEDS: SULFA/TRIMETH 800/160 (DS) TAB 1 EA TAB PO SCH ×2 (08:36→21:06)
[2019-07-05] MEDS: ASPIRIN (ENTERIC COATED) 81 MG TAB PO SCH (08:36)
[2019-07-05] MEDS: LISINOPRIL 5 MG TAB PO SCH (08:36)
[2019-07-05] MEDS: TAMSULOSIN 0.4 MG CAP PO SCH (08:36)
[2019-07-05] MEDS: RIVAROXABAN 10 MG TAB PO SCH (08:36)
--- NOTE | 2019-07-05 13:08 | PN ---
SUPERVISING PHYSICIAN: Maycol Negro MD DATE: 07/05/19 SUBJECTIVE: The patient is resting in the bedside chair this morning. He was moved to a different room due to some confusion overnight, but seems to be oriented this morning. He has not had any complaints of any nausea, vomiting or chest pain. He remains afebrile. OBJECTIVE: VITAL SIGNS: Temperature 98.1. Pulse 84. Blood pressure 109/74. Respirations 16. Saturation 95% on room air. I&Os show negative balance of 365 with 1325 out yesterday. Weight 76.9 kg. GENERAL: The patient appears to be be resting comfortably. He is in no distress. He is alert. He does not appear to be confused. CHEST: Lungs are clear to auscultation. HEART: Regular rate and rhythm. ABDOMEN: Soft, nontender. Positive bowel sounds. EXTREMITIES: Right knee shows incision site clean and dry with minimal erythema. Distal pulses 2+ bilaterally with good capillary refill. NEUROLOGIC: Alert and oriented times three. LABORATORY: No additional laboratory studies today. RADIOLOGY: No additional studies. ASSESSMENT: 1. Urinary tract infection, cultures showing no growth with the patient having been on antibiotics prior to collection of specimen. The patient is currently on antibiotic coverage including Rocephin and p.o. Bactrim. The patient is clinically stable. 2. Urinary retention, requiring catheterization previously, but without any symptoms post removal of catheter with a pre and post voiding trial that was equivocal with the patient having good output. 3. Status post left total knee arthroplasty performed on 06/26/2019. 4. History of hypertension. 5. Coronary artery disease. 6. Prostate cancer with benign prostatic hypertrophy with some urinary retention with no complications at this point with Dias catheter removed. PLAN: The patient has been accepted to [facility]. At this point, they are waiting for a male bed, which I have been reassured will be available on Tuesday. Until the patient can transition to outpatient management, he remains on antibiotic coverage with Bactrim as I stopped his Rocephin yesterday. He remains clinically stable. Hopefully we will discharge later tomorrow. #[id number] [facility]
[2019-07-05] MEDS ORDERED: CYCLOBENZAPRINE HCL 5 MG TAB ONE (19:08)
[2019-07-05] MEDS: CYCLOBENZAPRINE HCL 10 MG TAB PO PRN (20:00)
[2019-07-05] MEDS: DOCUSATE CALCIUM 240 MG CAP PO SCH (21:06)
[2019-07-05] MEDS: SIMVASTATIN 20 MG TAB PO SCH (21:06)
[2019-07-06] MEDS: OMEPRAZOLE CAP 20 MG CAP PO SCH (06:03)
[2019-07-06] MEDS: TAMSULOSIN 0.4 MG CAP PO SCH (08:20)
[2019-07-06] MEDS: SULFA/TRIMETH 800/160 (DS) TAB 1 EA TAB PO SCH (08:20)
[2019-07-06] MEDS: LISINOPRIL 5 MG TAB PO SCH (08:20)
[2019-07-06] MEDS: RIVAROXABAN 10 MG TAB PO SCH (08:20)
[2019-07-06] MEDS: ASPIRIN (ENTERIC COATED) 81 MG TAB PO SCH (08:20)
[2019-07-06 12:13] VITALS: BP 110/79; TEMP 97.1; O2SAT 95
--- NOTE | 2019-07-06 14:51 | DS ---
SUPERVISING PHYSICIAN: Maycol Negro MD DISCHARGE DIAGNOSIS: 1. Urinary tract infection, cultures showing no growth with the patient having been on antibiotics prior to collection of specimen. The patient is currently on antibiotic coverage including Rocephin and p.o. Bactrim. The patient is clinically stable. 2. Urinary retention, requiring catheterization previously, but without any symptoms post removal of catheter with a pre and post voiding trial that was equivocal with the patient having good output. 3. Status post left total knee arthroplasty performed on 06/26/2019. 4. History of hypertension. 5. Coronary artery disease. 6. Prostate cancer with benign prostatic hypertrophy with some urinary retention with no complications at this point with Dias catheter removed. HISTORY OF PRESENT ILLNESS: This is a 78 year-old male patient who came to the Emergency Room with complaints that he had been transferred to a [facility] facility and felt like he was not being cared for. His daughter was somewhat in a panic and felt that her dad did not receive the therapy that she expected. She felt that the facility was sub par in its cleanliness. She was quite concerned due to the lack of rehab as well as the care he received. He had a left total knee arthroplasty done on 06/26/19. He had been transferred less than 24 hours prior to his admission to the Emergency Room. She had some concern with some mild redness around the incisional area. She also was concerned that his antibiotics were not started as well as his Dias catheter was to be in place. At some point he was seen by the facility physician and he was started on clindamycin and Levaquin. He denied any pain in the Emergency Room. He did continue to have a Idas catheter as he has a history of benign prostatic hypertrophy and had some urinary retention on his previous hospitalization. His daughter was called at 4:30 in the morning and she went to get him and brought him back to our facility. His vital signs showed temperature 96.5, heart rate 93, blood pressure 99/74, respiratory rate 18, O2 saturation 95% on room air. Laboratory studies were done. WBCs were 6,900 with hemoglobin 11.5, hematocrit 33.6. Sodium was slightly low at 134, chloride 99. Other electrolytes were within normal limits. Liver function tests were unremarkable. Lactic acid 1. Urine showed 100 urine protein, moderate urine blood, small urine bilirubin, small urine leukocyte esterase, 10 to 20 urine RBCs, 10 to 20 urine WBCs and 2+ urine bacteria. It is to be noted he was on Bactrim when he left this facility as well as on transfer. The patient was given some Tramadol as well as some fluids. Dr. Nielson was called. Dr. Nielson called me for admission. We did examine the patient in the Emergency Room. It is to be noted that the knee had some redness around his incisional site with a very small amount of edema. There was no drainage. No fluctuance. There was only mild tenderness. We will place the patient in observation in the hospital for a urinary tract infection. HOSPITAL COURSE: The patient was placed in observation. He was continued with his Bactrim and I have added Rocephin. He was referred to [facility] and was accepted and he was to be transferred as soon as they had a male bed. Dr. Nielson was also consulted for any orthopedic issues and physical therapy was resumed as well as Xarelto for postoperative DVT prophylaxis. His current plan of care was continued while we were continuing to await a bed from [facility]. His antibiotics were continued for possible urinary tract infection while we awaited his culture results. No problems were noted with the knee. He continued with his physical therapy for strengthening and conditioning. His cultures were resulted and showed no significant growth. His catheter was discontinued and he had no further urinary retention. [facility] was called and found that they do now have a bed and he will be discharged to [facility] in [place] in stable condition. LABORATORY: CBCs were unremarkable. Chemistries showed stable electrolytes with a slightly low calcium at 8.3. His blood glucose was 117. Blood cultures showed no growth after 5 days. Urine culture showed no growth after 36 hours incubation. DISCHARGE PLAN: The patient will be discharged to [facility] in [place] in stable condition. He is to resume his previous diet and his activity will be per physical therapy. He is to followup with Dr. Mustafa in 1 to 2 weeks after discharge from rehab facility as well as Dr. Nielson. After discharge, he is to return to the hospital or followup with Dr. Mustafa or Dr. Nielson for any problems or complications. DISCHARGE MEDICATIONS: 1. Simvastatin. 2. Omeprazole. 3. Lisinopril. 4. Aspirin. 5. Tamsulosin. 6. Nitroglycerin. 7. Multivitamin. 8. Flexeril. 9. Surfak. 10. Bactrim. 11. Tramadol. It is to be noted that he has completed his 12 days of Xarelto and that will not need to be continued. #[id number] [facility]
[2019-07-08] MEDS ORDERED: ENOXAPARIN SODIUM 40 MG/0.4 ML SYG SUBCU SCH (21:00)
== END 2019-07-06 14:45 | DRG 690 ==
LOC: ER 11:29 → MS 15:21 → UNDOADMOB 15:21 → MS 07-04 13:58 → OBSVTOIN 07-05 04:00 → UNDOADMOB 07-05 04:00 → MS 07-05 04:00 → INTOOBSV 07-05 04:00
PROVIDERS: ADMIT Nurse Practitioner Acute Care; ATTEND Nurse Practitioner Acute Care
DX: N39.0 Urinary tract infection, site not specified (principal); N40.1 Benign prostatic hyperplasia with lower urinary tract symptoms; R33.8 Other retention of urine; I25.10 Atherosclerotic heart disease of native coronary artery without angina pectoris; I10 Essential (primary) hypertension; F03.90 Unspecified dementia, unspecified severity, without behavioral disturbance, psychotic disturbance, mood disturbance, and anxiety; N52.9 Male erectile dysfunction, unspecified; M48.02 Spinal stenosis, cervical region; Z85.46 Personal history of malignant neoplasm of prostate; Z95.1 Presence of aortocoronary bypass graft; Z96.652 Presence of left artificial knee joint; Z88.5 Allergy status to narcotic agent; Z88.6 Allergy status to analgesic agent; Z79.82 Long term (current) use of aspirin; Z87.891 Personal history of nicotine dependence; Z79.891 Long term (current) use of opiate analgesic; Z79.899 Other long term (current) drug therapy

== ENCOUNTER 2020-01-08 16:22 | Emergency (ER) | payer MEDICARE, OTHER ==
[2020-01-08] MEDS ORDERED: SODIUM CHLORIDE 0.9% (FLUSH) 10 ML SYG IV PRN (16:56)
--- NOTE | 2020-01-08 17:26 | RAD ---
EXAM DESCRIPTION: Chest,1 View CLINICAL HISTORY: chest pain COMPARISON: Chest radiograph dated June 30, 2019 TECHNIQUE: One view radiograph of the chest FINDINGS: Postsurgical changes and median sternotomy wires. Cardiac silhouette shows normal heart size. Pulmonary vascularity is within normal limits. Minimal linear opacity left lung base most compatible with atelectasis. Otherwise, lungs show no confluent infiltrates. No pleural effusion. No pneumothorax. No acute osseous abnormality. IMPRESSION: Minimal left basilar atelectasis. Otherwise, lungs show no confluent infiltrates. Electronically signed by: Ronaldo Stack MD 01/08/2020 5:24 PM CDT
--- NOTE | 2020-01-08 18:17 | ED.PDOC ---
History of Present Illness - General Chief Complaint: Chest Pain/OK Stated Complaint: chills, chest pain, numbness left head Time Seen by Provider: 01/08/20 16:56 Source: patient, RN notes reviewed, Vital Signs reviewed Exam Limitations: no limitations - History of Present Illness Initial Comments: Patient is a 79-year-old white male who presents with complaints of chest pain, some chills after coming in side from working outside this morning and some left hand numbness that was transitory in nature. Patient was out working in the yard when he came in and started having some mild chest pain and associated chills. The pain started around 9 AM andworsened while he ate breakfast, but resolved after taking 2 nitroglycerin. Patient has a known history of coronary artery disease and has intermittent stable angina. He gets episodes every month or so. It usually goes away with 1 or 2 nitroglycerin. Today's chest pain did not cause him any nausea, diaphoresis, vomiting. Patient denies any radiation of the chest pain. It was mild in intensity. Timing/Duration: 7-24 hours Severity/Quality: mild Location: substernal Chest Pain Radiation: no radiation Activities at Onset: activity Prior Chest Pain/Cardiac Workup: angina Improving Factors: medication - Nitroglycerin, rest Worsening Factors: eating, movement Nitro Today/Relief: 0.4 mg x 2 Aspirin Treatment Today: 81 mg x 4 Associated Symptoms: denies symptoms Allergies/Adverse Reactions: Allergies Lorazepam Allergy (Severe, Verified 01/08/20 16:58) Anaphylaxis Hydromorphone [From Dilaudid] Allergy (Intermediate, Verified 01/08/20 16:58) Other SEVER HALLUSIONATIONS/DELUSIONS Meperidine [From Demerol HCl] Allergy (Intermediate, Verified 01/08/20 16:58) Other SEVERE HALLUCINATIONS/DELUSIONS. Meloxicam Allergy (Verified 01/08/20 16:58) Home Medications: Ambulatory Orders Aspirin [Aspirin EC Low Dose] 81 mg PO DAILY 01/14/17 Lisinopril 5 mg PO DAILY 01/14/17 Omeprazole 20 mg PO DAILY 01/14/17 Simvastatin [Zocor] 40 mg PO DAILY 01/14/17 Multiple Vitamins W/ Minerals [Mens 50+ Multi Vitamin &] 1 tab PO DAILY 04/20/19 Nitroglycerin 0.4 mg Tab [Nitrostat] 1 ea SL PRN 04/20/19 Tamsulosin [Flomax] 0.4 mg PO QD 04/20/19 Cyclobenzaprine HCl [Flexeril] 10 mg PO Q8H PRN tab 06/29/19 Docusate Calcium [Surfak] 240 mg PO BEDTIME cap 06/29/19 Sulfa/Trimeth 800/160 (Ds) Tab [Bactrim DS] 1 tablet PO BID #20 tab 06/29/19 Tramadol HCl 50 mg PO Q4H PRN #40 tab 06/29/19 Review of Systems - Review of Systems Constitutional: States: no symptoms reported, see HPI. Denies: chills, fever, malaise, weakness EENTM: States: no symptoms reported. Denies: see HPI, eye pain, blurred vision, double vision Respiratory: States: no symptoms reported. Denies: cough, short of breath, stridor Cardiology: States: see HPI, chest pain. Denies: palpitations, syncope Gastrointestinal/Abdominal: States: no symptoms reported. Denies: abdominal pain, nausea, vomiting Genitourinary: States: no symptoms reported Musculoskeletal: States: no symptoms reported. Denies: back pain, neck pain Skin: States: no symptoms reported. Denies: change in color, rash Neurological: States: no symptoms reported. Denies: tingling, tremors, weakness Endocrine: States: no symptoms reported Hematologic/Lymphatic: States: no symptoms reported All other Systems: No Change from Baseline Past Medical History (General) - Patient Medical History Hx Seizures: No Hx Stroke: No Hx Asthma: No Hx of COPD: No Hx Cardiac Disorders: Yes - Hypercholesterolemia Hx Congestive Heart Failure: No Hx Pacemaker: No Hx Hypertension: No Hx Diabetes: No Hx Gastroesophageal Reflux: Yes Hx Cancer: No Hx Hepatitis C: No Hx MRSA: No - Vaccination History Hx Tetanus, Diphtheria Vaccination: Yes Hx Influenza Vaccination: Yes Hx Pneumococcal Vaccination: Yes - Social History Hx Tobacco Use: Yes Hx Alcohol Use: Yes Hx Substance Use: No Hx Physical Abuse: No Hx Emotional Abuse: No - Female History Patient is a Female of Child Bearing Age (10 -59 yrs old): No Family Medical History - Family History Father Family History: Unknown Living Status: Hx Cardiac Disease: Yes - parents Physical Exam - Physical Exam General Appearance: Alert, Comfortable, Well Developed, Well Groomed, Well Hydrated, Well Nourished Eyes, Ears, Nose, Throat Exam: PERRL/EOMI, normal ENT inspection, pharynx normal Neck: non-tender, full range of motion, supple, normal inspection Respiratory: chest non-tender, lungs clear, normal breath sounds, no respiratory distress, no accessory muscle use Cardiovascular/Chest: normal peripheral pulses, regular rate, rhythm, no edema, no gallop, no JVD, no murmur Peripheral Pulses: radial,right: 2+, radial,left: 2+ Gastrointestinal/Abdominal: normal bowel sounds, non tender, soft, no organomegaly, no pulsatile mass Extremity: normal range of motion, non-tender, normal inspection 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 01/08/20 18:26 Patient's lab work is unremarkable. It is been greater than 6 hours since his initial chest pain and he has had no return of the chest pain. I suspect this is patient's regular stable angina. Patient to follow-up with PCP and car diology in the next few days. Patient requests discharge home as he does not feel he needs to be here. Plan on discharge home at this time Baltazar Newton M.D. #[id number] - Results/Orders Results/Orders: EKG performed 08 January 2020 at 1631 hrs.: Sinus rhythm with first-degree AV block at 60 bpm, left axis deviation, incomplete right bundle branch block, septal infarct age indeterminate, abnormal EKG. No acute ischemia at this time. No comparison EKG available. EXAM DESCRIPTION: Chest,1 View CLINICAL HISTORY: chest pain COMPARISON: Chest radiograph dated June 30, 2019 TECHNIQUE: One view radiograph of the chest FINDINGS: Postsurgical changes and median sternotomy wires. Cardiac silhouette shows normal heart size. Pulmonary vascularity is within normal limits. Minimal linear opacity left lung base most compatible with atelectasis. Otherwise, lungs show no confluent infiltrates. No pleural effusion. No pneumothorax. No acute osseous abnormality. IMPRESSION: Minimal left basilar atelectasis. Otherwise, lungs show no confluent infiltrates. Electronically signed by: Ronaldo Stack MD 01/08/2020 5:24 PM CDT 07/21/20 16:56 Sodium Chloride 0.9% (Flush) [Saline Flush Syringe] 3 ml IV PRN PRN URINALYSIS Stat 01/08/20 16:57 Telemetry ONCE Pulse Oximetry Assessment DAILY 01/08/20 16:58 EKG .ONCE 01/08/20 17:00 EKG STAT 01/09/20 09:00 Pulse Ox Daily Laboratory Results - last 24 hr 01/08/20 01/08/20 17:00 17:00 WBC 5.7 RBC 3.84 L Hgb 12.4 L Hct 36.1 L MCV 94.1 H MCH 32.4 H MCHC 34.4 RDW 15.0 H Plt Count 202 MPV 7.5 Absolute Neuts (auto) 4.60 Absolute Lymphs (auto) 0.50 L Absolute Monos (auto) 0.40 Absolute Eos (auto) 0.10 Absolute Basos (auto) 0.00 Neutrophils % 81.8 H Lymphocytes % 9.4 L Monocytes % 6.5 Eosinophils % 1.9 Basophils % 0.4 PT 10.5 INR 1.06 PTT (SP) 28.2 Sodium 137 Potassium 4.3 Chloride 104 Carbon Dioxide 28 Anion Gap 9.3 L BUN 19 H Creatinine 0.94 BUN/Creatinine Ratio 20.2 H Random Glucose 139 H Serum Osmolality 278.3 Calcium 9.0 Magnesium 1.9 Creatine Kinase 64 CK-MB (CK-2) 1.6 CK-MB (CK-2) % Not Reportable Troponin I < 0.02 B-Natriuretic Peptide 84.0 Vital Signs 01/08/20 17:10 Temperature 98.5 F Pulse Rate [ 64 Pulse Ox] Respiratory 18 Rate Blood Pressure 125/73 [Left Arm] O2 Sat by Pulse 97 Oximetry Departure - Departure Clinical Impression: Stable angina Chest pain Qualifiers: Chest pain type: chest pain due to myocardial ischemia Ischemic chest pain type: stable angina pectoris Qualified Code(s): I20.8 - Other forms of angina pectoris Time of Disposition: 18:34 Disposition: Discharge to Home or Self Care Condition: Good Departure Forms: ED Discharge - Pt. Copy, Patient Portal Self Enrollment Diet: resume usual diet Activity: increase activity as tolerated, walking as tolerated Referrals: Ronaldo Mustafa III, MD [Primary Care Provider] - 1-5 Days Home Medications: Ambulatory Orders Aspirin [Aspirin EC Low Dose] 81 mg PO DAILY 01/14/17 Lisinopril 5 mg PO DAILY 01/14/17 Omeprazole 20 mg PO DAILY 01/14/17 Simvastatin [Zocor] 40 mg PO DAILY 01/14/17 Multiple Vitamins W/ Minerals [Mens 50+ Multi Vitamin &] 1 tab PO DAILY 04/20/19 Nitroglycerin 0.4 mg Tab [Nitrostat] 1 ea SL PRN 04/20/19 Tamsulosin [Flomax] 0.4 mg PO QD 04/20/19 Cyclobenzaprine HCl [Flexeril] 10 mg PO Q8H PRN tab 06/29/19 Docusate Calcium [Surfak] 240 mg PO BEDTIME cap 06/29/19 Sulfa/Trimeth 800/160 (Ds) Tab [Bactrim DS] 1 tablet PO BID #20 tab 06/29/19 Tramadol HCl 50 mg PO Q4H PRN #40 tab 06/29/19
[2020-01-08 18:58] VITALS: BP 122/65; TEMP 98.6; O2SAT 99
== END 2020-01-08 18:55 | disposition home or self-care (01) ==
LOC: ER 16:22
DX: I20.8 Other forms of angina pectoris (principal); I25.10 Atherosclerotic heart disease of native coronary artery without angina pectoris; Z79.899 Other long term (current) drug therapy; Z87.891 Personal history of nicotine dependence
CPT/HCPCS: 36415; 71045; 80048; 82550; 82553; 83880; 84484; 85025; 85610; 85730; 93005; A4216

== ENCOUNTER 2020-01-20 15:41 | Observation (INO) | payer MEDICARE, OTHER ==
[2020-01-20] MEDS ORDERED: ASPIRIN TABLET 325 MG TAB PO ONE (15:47)
[2020-01-20] MEDS ORDERED: NITROGLYCERIN 0.4 MG 25 EA TAB SL ONE (15:49)
--- NOTE | 2020-01-20 16:00 | RAD ---
EXAM: XR Chest, 1 View CLINICAL HISTORY: The patient is 79 years old and is Male; chest pain TECHNIQUE: Single upright portable view of the chest. COMPARISON: January 08, 2020. FINDINGS: Lungs: Unremarkable. No consolidation. Pleural space: Unremarkable. No pneumothorax. Heart: Unremarkable. No cardiomegaly. Mediastinum: Unremarkable. Bones/joints: Sternal closure wires. No acute fracture visualized. Upper abdomen: No free air in the visualized upper abdomen. IMPRESSION: No acute cardiopulmonary process identified. Electronically signed by: Jossie Wheeler MD 01/20/2020 3:58 PM CDT
[2020-01-20] MEDS ORDERED: ENOXAPARIN SODIUM 40 MG/0.4 ML SYG SUBCU ONE (19:43)
[2020-01-20] MEDS ORDERED: ENOXAPARIN SODIUM 30 MG/0.3 ML SYG SUBCU ONE (19:43)
--- NOTE | 2020-01-20 19:57 | ED.PDOC ---
History of Present Illness - General Chief Complaint: Chest Pain/TN Stated Complaint: CP, bilateral arm numbess and tingling Time Seen by Provider: 01/20/20 15:46 Source: patient Exam Limitations: no limitations - History of Present Illness Initial Comments: The patient is a 79-year-old male presented emergency room secondary to the onset of chest pain and pain between his shoulder blades while he was sedentary on couch. Pain was significant at a 6 or 7 out of 10. It only lasted a couple of minutes. The patient did not take a nitroglycerin. By the time he arrived to the emergency room had of course almost entirely resolved. He still rated the discomfort at a 1 out of 10. No nausea or vomiting. The patient does have a significant history of coronary artery disease. He had a CABG around 20 years ago according to him and has had 5 stents since. Residual discomfort was relieved with 1/2 tablet of nitroglycerin here. The nitroglycerin did drop his blood pressure fairly significantly from the 120s on systolic and down to the 90s. He has recovered nicely. 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 The patient does report low normal blood pressures on a daily basis as well as mild to moderate bradycardia normally. Timing/Duration: momentarily Severity: moderate Improving Factors: medication Worsening Factors: nothing Associated Symptoms: chest pain Allergies/Adverse Reactions: Allergies Lorazepam Allergy (Severe, Verified 01/08/20 16:58) Anaphylaxis Hydromorphone [From Dilaudid] Allergy (Intermediate, Verified 01/08/20 16:58) Other SEVER HALLUSIONATIONS/DELUSIONS Meperidine [From Demerol HCl] Allergy (Intermediate, Verified 01/08/20 16:58) Other SEVERE HALLUCINATIONS/DELUSIONS. Meloxicam Allergy (Verified 01/08/20 16:58) Home Medications: Ambulatory Orders Aspirin [Aspirin EC Low Dose] 81 mg PO DAILY 01/14/17 Lisinopril 5 mg PO DAILY 01/14/17 Omeprazole 20 mg PO DAILY 01/14/17 Simvastatin [Zocor] 40 mg PO DAILY 01/14/17 Multiple Vitamins W/ Minerals [Mens 50+ Multi Vitamin &] 1 tab PO DAILY 04/20/19 Tamsulosin [Flomax] 0.4 mg PO QD 04/20/19 Docusate Calcium [Surfak] 240 mg PO BEDTIME cap 06/29/19 Ranolazine [Ranolazine ER] 500 mg PO BID 01/20/20 Review of Systems - Review of Systems Constitutional: States: no symptoms reported EENTM: States: no symptoms reported Respiratory: States: no symptoms reported Cardiology: States: chest pain Gastrointestinal/Abdominal: States: no symptoms reported Genitourinary: States: no symptoms reported Musculoskeletal: States: no symptoms reported Skin: States: no symptoms reported Neurological: States: no symptoms reported Endocrine: States: no symptoms reported All other Systems: No Change from Baseline Past Medical History (General) - Patient Medical History Hx Seizures: No Hx Stroke: No Hx Asthma: No Hx of COPD: No Hx Cardiac Disorders: Yes - 5 stents Hx Congestive Heart Failure: No Hx Pacemaker: No Hx Hypertension: Yes Hx Diabetes: No Hx Gastroesophageal Reflux: Yes Hx Cancer: No Hx Hepatitis C: No Hx MRSA: No Surgical History: coronary bypass surgery, other - Vaccination History Hx Tetanus, Diphtheria Vaccination: No Hx Influenza Vaccination: Yes Hx Pneumococcal Vaccination: Yes - Social History Hx Tobacco Use: Yes Hx Alcohol Use: Yes Hx Substance Use: No Hx Substance Use Treatment: No Hx Depression: No Hx Physical Abuse: No Hx Emotional Abuse: No - Female History Patient is a Female of Child Bearing Age (10 -59 yrs old): No Patient : No Family Medical History - Family History Father Family History: Unknown Living Status: Hx Cardiac Disease: Yes - parents Physical Exam - Physical Exam General Appearance: Alert, Comfortable, No apparent distress Eye Exam: bilateral normal Ears, Nose, Throat: hearing grossly normal, normal pharynx Neck: full range of motion, supple Respiratory: lungs clear, normal breath sounds, no respiratory distress, no accessory muscle use Cardiovascular/Chest: normal peripheral pulses, regular rate, rhythm - Borderline bradycardic at times, no edema Peripheral Pulses: radial,right: 2+, radial,left: 2+ Gastrointestinal/Abdominal: non tender, soft Rectal Exam: deferred Back Exam: no CVA tenderness, no vertebral tenderness Extremity: normal range of motion, non-tender, normal inspection, no pedal edema, normal capillary refill 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, alert, normal mood/affect, oriented x 3 Skin Exam: normal color Comments: Vital Signs - 24 hr 01/20/20 01/20/2020 15:45 15:49 16:30 Temperature 97 F L Pulse Rate [ 58 L 58 L 59 L Pulse ox] Respiratory 20 20 19 Rate Blood Pressure 122/72 94/59 [L arm] O2 Sat by Pulse 98 98 Oximetry 01/20/20 01/20/20 17:00 18:00 Temperature 97.0 F L 97.0 F L Pulse Rate [ 46 L 48 L Pulse ox] Respiratory 17 17 Rate Blood Pressure 94/60 107/63 [L arm] O2 Sat by Pulse 98 99 Oximetry Progress - Progress Progress: 01/20/20 19:59 The patient is a 79-year-old male presented emergency room secondary to an episode of chest pain. This is concerning for angina given the patient's significant cardiac history. He does have a history of angina though he reports this felt different than some of his previous episodes of angina. 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 The patient has had no recurrence of the chest discomfort since a half a pill of nitroglycerin was taken here. The first 2 sets of cardiac enzymes are negative. Telemetry and EKG shows sinus bradycardia. EKG is otherwise reassuring. The patient does have baseline low normal blood pressures and mild sinus bradycardia. Given the patient's cardiac history the patient is being placed on Lovenox overnight and has been given his full dose of aspirin. He will be monitored on telemetry monitoring. An echocardiogram can be done in the morning and his day haul youth supervisor can be contacted at that point for further input. According to the patient, he is already scheduled for some form of a stress test later in the week with his day haul youth supervisor. Currently the patient is asymptomatic. Admit for continued care and monitoring. laurita mujica [id number] 01/20/20 20:02 - Results/Orders Results/Orders: Chest x-ray shows no acute pathology. No widening the mediastinum. Sinus bradycardia with a first-degree AV block at 54 bpm. Borderline left axis. Early right bundle branch block. Borderline poor R wave progression. No ST segment or T wave changes indicative of acute ischemia. EKG is consistent with previous EKGs. Normal QT interval. Telemetry monitoring shows sinus bradycardia. Laboratory Tests 01/20/20 01/20/20 01/20/20 16:04 16:04 16:04 WBC 4.7 L RBC 3.93 L Hgb 12.9 L Hct 36.9 L MCV 94.1 H MCH 32.8 H MCHC 34.9 RDW 14.4 Plt Count 199 MPV 7.7 Absolute Neuts (auto) 3.10 Absolute Lymphs (auto) 0.80 L Absolute Monos (auto) 0.50 Absolute Eos (auto) 0.30 Absolute Basos (auto) 0.00 Neutrophils % 66.9 Lymphocytes % 16.3 L Monocytes % 9.7 H Eosinophils % 6.2 H Basophils % 0.9 PT 10.4 INR 1.05 PTT (SP) 29.5 Sodium 136 Potassium 4.3 Chloride 103 Carbon Dioxide 25 Anion Gap 12.3 BUN 19 H Creatinine 0.99 BUN/Creatinine Ratio 19.2 Random Glucose 99 Serum Osmolality 274.2 L Calcium 8.8 Magnesium Total Bilirubin 0.7 AST 17 ALT 10 Alkaline Phosphatase 77 Creatine Kinase 77 CK-MB (CK-2) 1.9 CK-MB (CK-2) % Not Reportable Troponin I < 0.02 B-Natriuretic Peptide 32.8 Serum Total Protein 6.8 Albumin 4.0 Globulin 2.8 Albumin/Globulin Ratio 1.4 01/20/20 01/20/20 16:04 19:00 WBC RBC Hgb Hct MCV MCH MCHC RDW Plt Count MPV Absolute Neuts (auto) Absolute Lymphs (auto) Absolute Monos (auto) Absolute Eos (auto) Absolute Basos (auto) Neutrophils % Lymphocytes % Monocytes % Eosinophils % Basophils % PT INR PTT (SP) Sodium Potassium Chloride Carbon Dioxide Anion Gap BUN Creatinine BUN/Creatinine Ratio Random Glucose Serum Osmolality Calcium Magnesium 1.9 Total Bilirubin AST ALT Alkaline Phosphatase Creatine Kinase 75 CK-MB (CK-2) 1.8 CK-MB (CK-2) % Not Reportable Troponin I < 0.02 B-Natriuretic Peptide Serum Total Protein Albumin Globulin Albumin/Globulin Ratio Departure - Departure Clinical Impression: Chest pain at rest, History of coronary artery disease Disposition: Admit Patient Departure Forms: ED Discharge - Pt. Copy, Patient Portal Self Enrollment Referrals: Ronaldo Mustafa III, MD [Primary Care Provider] - 1-2 Weeks Home Medications: Ambulatory Orders Aspirin [Aspirin EC Low Dose] 81 mg PO DAILY 01/14/17 Lisinopril 5 mg PO DAILY 01/14/17 Omeprazole 20 mg PO DAILY 01/14/17 Simvastatin [Zocor] 40 mg PO DAILY 01/14/17 Multiple Vitamins W/ Minerals [Mens 50+ Multi Vitamin &] 1 tab PO DAILY 04/20/19 Tamsulosin [Flomax] 0.4 mg PO QD 04/20/19 Docusate Calcium [Surfak] 240 mg PO BEDTIME cap 06/29/19 Ranolazine [Ranolazine ER] 500 mg PO BID 01/20/20 Decision To Admit - Decistion To Admit Decision to Admit Reason: Medical Nature Decision to Admit Date: 01/20/20 Decision to Admit Time: 20:01
[2020-01-20] MEDS ORDERED: SODIUM CHLORIDE 0.9% (FLUSH) 10 ML SYG IV PRN (22:21)
[2020-01-20] MEDS ORDERED: MORPHINE SULFATE INJ 10 MG/ML VIAL IV PRN (22:21)
[2020-01-20] MEDS ORDERED: NITROGLYCERIN 0.4 MG 25 EA TAB SL PRN (22:21)
[2020-01-20] MEDS ORDERED: ACETAMINOPHEN 325 MG TAB PO PRN (22:21)
[2020-01-20] MEDS ORDERED: IV SET AND CAP CHANGE INJ INJ SCH (22:30)
[2020-01-20] MEDS ORDERED: SIMVASTATIN 20 MG TAB ONE (22:37)
[2020-01-20] MEDS ORDERED: RANOLAZINE ER 500 MG TAB PO ONE (22:37)
[2020-01-20] MEDS: RANOLAZINE 500 MG PO SCH (22:38)
[2020-01-21] MEDS ORDERED: PANTOPRAZOLE SODIUM IV 40 MG VIAL IV SCH (06:30)
[2020-01-21] MEDS ORDERED: RANOLAZINE ER 500 MG TAB PO ONE (07:07)
[2020-01-21] MEDS: RANOLAZINE 500 MG PO SCH (08:21)
[2020-01-21] MEDS ORDERED: SODIUM CHLORIDE 0.9% (FLUSH) 10 ML SYG IV SCH (09:00)
[2020-01-21] MEDS ORDERED: TAMSULOSIN 0.4 MG CAP PO SCH (09:00)
[2020-01-21] MEDS ORDERED: LISINOPRIL 5 MG TAB PO SCH (09:00)
[2020-01-21] MEDS ORDERED: ASPIRIN (ENTERIC COATED) 81 MG TAB PO SCH (09:00)
[2020-01-21 10:25] VITALS: BP 105/62; TEMP 97.5; O2SAT 99
[2020-01-21] MEDS ORDERED: SIMVASTATIN 20 MG TAB PO SCH (21:00)
[2020-01-21] MEDS ORDERED: NON-FORMULARY MEDICATION 1 EA MIS (Simvastatin [Zocor] 40 MG) PO SCH (21:00)
--- NOTE | 2020-01-22 15:20 | SSS ---
SUPERVISING PHYSICIAN: Ирина Armenta MD ADMISSION DIAGNOSIS: 1. Chest pain, rule out. 2. History of coronary artery disease. 3. Hypertension. 4. Erectile dysfunction. 5. Prostate cancer. 6. Past history of upper GI bleed secondary to gastric ulcer. 7. Cervical spinal stenosis. DISCHARGE DIAGNOSIS: 1. Chest pain, etiology uncertain although no acute findings on rule out with no acute EKG changes, negative troponins with the patient having a significant history of coronary artery disease and scheduled to have a nuclear stress test Tuesday after discharge. 2. History of coronary artery disease. 3. Hypertension. 4. Erectile dysfunction. 5. Prostate cancer. 6. Past history of upper GI bleed secondary to gastric ulcer. 7. Cervical spinal stenosis. HISTORY OF PRESENT ILLNESS: Mr. Stover is a 79-year-old male that presented initially to the Emergency Room the night before discharge secondary to what he described as chest pains between his shoulder blades while he was sedentary on the couch. He rated the pain as 6 or 7/10, but it only lasted a couple of minutes. He took no medications to make the pain go away and once he arrived in the Emergency Room, he was essentially pain free. He denied any nausea or vomiting, but he does have a significant history of coronary artery disease including coronary artery bypass graft 20 years previously with stent placement since. He was given nitroglycerin half tablet because he again reported shortly after admission just some residual pain of 1 which did make the pain go away, but dropped his systolic significantly down into the 90s. He normally is on an antianginal medicine and followed by Dr. Dhillon, macaroni maker. He normally does have what he consider to be low blood pressure as well as some mild to moderate bradycardia normally. Given his significant history, the Emergency Room physician, Dr. Mcmullen, requested the patient be placed in observation overnight for extended rule out. The patient was admitted in stable condition. PAST MEDICAL HISTORY: 1. Coronary artery disease. 2. Hypertension. 3. Erectile dysfunction. 4. Prostate cancer. 5. Upper GI bleed secondary to gastric ulcer. 6. Cervical stenosis. PAST SURGICAL HISTORY: 1. Bilateral inguinal hernia repair. 2. Coronary artery bypass graft x5. 3. Cervical corpectomy. 4. EGD. 5. Left total knee arthroplasty in 2019. MEDICATIONS: 1. Flomax 0.4 mg daily. 2. Zocor 40 mg daily. 3. Ranolazine 500 mg b.i.d. 4. Nitro-Dur as needed 0.4 mg. 5. Multivitamin 1 tablet daily. 6. Lisinopril 5 mg daily. 7. Aspirin 81 mg daily. ALLERGIES: LORAZEPAM, HYDROMORPHONE, MEPERIDINE, MELOXICAM. FAMILY HISTORY: Noncontributory. SOCIAL HISTORY: The patient is retired. He is . He has one child. He quit smoking in 2006. He does drink alcohol on occasion, but denies any illicit drug use. REVIEW OF SYSTEMS: CONSTITUTIONAL: Negative for any fevers, chills or general malaise. HEENT: Negative for headaches, sore throats, nasal congestion, vision changes. RESPIRATORY: Negative for coughing, wheezing or shortness of breath. CARDIOVASCULAR: As noted in history of present illness, acute onset of chest pain. Negative for palpitations or syncopal episodes. GASTROINTESTINAL: Negative for nausea, vomiting, diarrhea, constipation or abdominal pain. GENITOURINARY: Negative for dysuria, hematuria, polyuria. MUSCULOSKELETAL: Negative for arthralgias, joint swelling. SKIN: Negative for lesions, rashes or unexplained changes. NEUROLOGIC: Negative for ataxia, seizures, syncopal episodes, dizziness, headaches or other focal deficits. HEMATOLOGIC: Negative for easy bruising, unexplained bleeding or transfusion reactions. PHYSICAL EXAMINATION: VITAL SIGNS: On discharge, temperature 97.5, pulse 65, blood pressure 105/62, respirations 17, saturation 99% on room air. GENERAL: The patient was resting comfortably and did not appear to be in any acute distress. He is alert. HEENT: Tympanic membranes clear bilaterally. Oropharynx is pink, moist without any lesions. NECK: Supple, nontender with full range of motion. No jugular venous distention noted. RESPIRATORY: Lung sounds are clear to auscultation bilaterally without any rhonchi, wheezes or rales. CARDIOVASCULAR: Regular rate and rhythm without any appreciable murmurs, gallops, or rubs. ABDOMEN: Soft, nontender. Positive bowel sounds. EXTREMITIES: There is no cyanosis, clubbing or edema. NEUROLOGIC: Cranial nerves II-XII are grossly intact. Facial features are symmetrical. Extraocular movements are within normal limits. No obvious focal motor deficits. The patient is alert and oriented times three. SKIN: Warm, pink and dry. LABORATORY: CBC on discharge showed white count 4,700, hemoglobin 12.9, hematocrit 37, platelet count 184,000, differential was without a left shift. Coagulation studies on admission showed normal PT, PTT. Chemistry on discharge showed normal electrolytes. BUN 0.95. Liver functions all within normal limits. Calcium normal at 8.9. He had four sets of troponins that were less than 0.02. CPK was normal at 61 on discharge. Lipid panel showed triglycerides 111, cholesterol 114, LDL 65, HDL 32. Urinalysis was not done. MICROBIOLOGY: No specimens were submitted. RADIOLOGY: Chest x-ray in the Emergency Room per radiologic interpretation showed no acute cardiopulmonary process identified. 12-lead EKG showed sinus bradycardia with a first degree AV block at 54. There was note of an early right bundle branch block possibly, but no obvious ST or T-wave changes indicative of any acute ischemia. EKGs were consistent with past EKGs. Normal QT interval and no acute changes noted on repeat EKGs during hospitalization. No ectopy noted on the monitor. HOSPITAL COURSE: Mr. Stover was admitted for an extended chest pain rule out. He had no recurrence of his symptoms. He had no shortness of breath. EKGs showed a continuation of sinus bradycardia with no ectopy. It was felt he was clinically stable with no recurrence indicating acute ischemia or acute coronary syndrome. He is scheduled already to see Dr. Mustafa next week and is scheduled for a stress test this coming Tuesday after discharge. Again, he was found clinically stable enough to continue with outpatient management. PLAN: Mr. Stover was discharged with instructions to followup with Dr. Mustafa on 01/28/20 at 1330. He has a stress test scheduled for this Tuesday at [facility]. He is to resume his usual diet including low-fat diet as tolerated, low-cholesterol. He can increase activity, but no strenuous exercise until cleared by Dr. Mustafa. He was told to return to the Emergency Department should he have any concerning symptoms. No medications were prescribed on discharge. All medications as prior to hospitalization were continued. He was already on an aspirin as well as Zocor, lisinopril. CONDITION ON DISCHARGE: Stable and improved. DISPOSITION: The patient is discharged home. #[id number] [facility]
== END 2020-01-21 13:55 | disposition home or self-care (01) ==
LOC: ER 15:41 → MS 21:24
PROVIDERS: ADMIT Nurse Practitioner Acute Care; ATTEND Nurse Practitioner Family
DX: R07.89 Other chest pain (principal); I25.10 Atherosclerotic heart disease of native coronary artery without angina pectoris; I10 Essential (primary) hypertension; N52.9 Male erectile dysfunction, unspecified; M48.02 Spinal stenosis, cervical region; I44.0 Atrioventricular block, first degree; K21.9 Gastro-esophageal reflux disease without esophagitis; Z79.82 Long term (current) use of aspirin; Z79.899 Other long term (current) drug therapy; Z95.1 Presence of aortocoronary bypass graft; Z95.5 Presence of coronary angioplasty implant and graft; Z85.46 Personal history of malignant neoplasm of prostate; Z87.19 Personal history of other diseases of the digestive system; Z87.891 Personal history of nicotine dependence; Z88.6 Allergy status to analgesic agent; Z88.8 Allergy status to other drugs, medicaments and biological substances
CPT/HCPCS: 96374; 96372; J1650 ×2; 82553 ×4; 80053 ×2; 80061; 36415 ×4; 85025 ×2; 82550 ×4; 83735; 85730; 85610; 84484 ×4; 83880; 71045; 94760; 99285; 93005 ×3; G0378

== ENCOUNTER → 2020-03-12 | Outpatient (CLI) | payer MEDICARE, OTHER | LOC: GMAL 14:10 | PROVIDERS: ATTEND Family Medicine | DX: C61 Malignant neoplasm of prostate (principal) ==

== ENCOUNTER → 2020-04-24 | Outpatient (CLI) | payer MEDICARE, OTHER | LOC: GMAL 10:55 | PROVIDERS: ATTEND Family Medicine | DX: D51.3 Other dietary vitamin B12 deficiency anemia (principal); E55.9 Vitamin D deficiency, unspecified; E03.9 Hypothyroidism, unspecified; I10 Essential (primary) hypertension ==